=== PATIENT | female | born 1965 | race Caucasian/White ===

== ENCOUNTER 2017-12-30 05:50 | Day surgery (SDC) | payer OTHER, SELFPAY ==
--- NOTE | 2017-12-30 | EGD_PTH ---
PATIENT: KENNETH PIERRE LOC: EN U#:[id number] AGE/SX: 52/F ROOM: RE12/30/[address]: Dr. Panchito Peralta MD : 1965 BED: DIS: 12/30/2017 SPEC #: [id number] RECD: 12/30/17 13:17 STATUS: SIDBinta RANDAL #: [id number] DEANNA: 12/30/17 00:[address]: Panchito Peralta DEPT: SURGICAL PATHOLOGY RECD BY: Luis Manuel Bee ENTERED: 12/30/17 13:18 SP TYPE: EGD BIOPSY ROLANDA DR: Cat Alanis PA-C Tissues: A - Duodenum, NOS B - Gastric mucous membrane C - Esophageal mucous membrane D - Esophageal mucous membrane Procedures: Surgery Specimen Level IV HEADER OPERATION: EGD PRE-OP DIAGNOSIS: GERD TISSUE SUBMITTED: A. Duodenal biopsy, B. Antral biopsy, C. Distal esophagus biopsy, D. Mid esophagus biopsy MICROSCOPIC DIAGNOSIS A. Duodenal biopsy: Fragment of duodenal mucosa with Kiah gland hyperplasia. B. Antral biopsy: Mild gastritis. C. Distal esophagus, biopsy: Fragments of gastroesophageal mucosa with mild chronic inflammation. Intestinal metaplasia (goblet cell metaplasia), not identified. See comment. D. Mid esophagus, biopsy: Fragments of squamous epithelium, no pathologic diagnosis. SJ:mo 01/02/18 COMMENT B. The results of immunohistochemistry for Helicobacter pylori will be reported separately. C. Alcian blue/PAS stain with matched control is used in the evaluation of the specimen. MICROSCOPIC DESCRIPTION Slides are reviewed. B. The specimen shows fragments of gastric mucosa with chronic inflammatory cell infiltrates in the lamina propria consisting of lymphocytes and plasma cells, consistent with mild chronic gastritis. GROSS DESCRIPTION A. Received is one container labeled with the patient name and designated duodenal biopsy. The specimen consists of one irregular fragment of light borjsa soft tissue that measures 0.3 x 0.2 x 0.1 cm. The specimen is totally submitted in one cassette. B. Received is one container labeled with the patient name and designated antral biopsy. The specimen consists of one irregular fragment of light borjas soft tissue that measures 0.5 x 0.2 x 0.1 cm. The specimen is totally submitted in one cassette. C. Received in fixative is one container labeled with the patient's name and designated distal esophagus. The specimen consists of multiple irregular fragments of light borjas soft tissue that in aggregate measure 1.5 x 0.3 x 0.1 cm. The specimen is totally submitted in one cassette. D. Received is one container labeled with the patient name and designated mid esophagus biopsy. The specimen consists of two irregular fragments of light borjas soft tissue that in aggregate measure 0.7 x 0.2 x 0.1 cm. The specimen is totally submitted in one cassette. SJ:mo 12/30/17 TC:3 CPT: 98904 x4
--- NOTE | 2017-12-30 | IMM_PTH ---
PATIENT: KENNETH PIERRE LOC: EN U#:[id number] AGE/SX: 52/F ROOM: RE12/30/[address]: Dr. Panchito Peralta MD : 1965 BED: DIS: 12/30/2017 SPEC #: [id number] RECD: 01/02/18 10:42 STATUS: ELIJAH RANDAL #: [id number] DEANNA: 12/30/17 00:[address]: Panchito Peralta DEPT: IMMUNOHISTOCHEMISTRY RECD BY: Masha Mena ENTERED: 01/02/18 10:42 SP TYPE: IMMUNO OTHR DR: Cat Alanis PA-C Tissues: Gastric mucous membrane Procedures: H Pylori (initial) PHYSICIAN & INSTITUTION [place] [address] SPECIMEN INFORMATION: Tissue Source: B. Antral biopsy Clinical Info: GERD Specimen Number: [id number] CPT code: 32657 METHODOLOGY: Deparaffinized sections of prefer/formalin-fixed tissue or PAP/DQ stained slides are incubated with monoclonal/polyclonal antibodies/oligonucleotide probes. Localization is made via biotin free immunoperoxidase method. Appropriate controls are performed and reacted as expected. Results on target cell population are indicated in the following table: RESULTS: ANTIBODY / CLONE RESULT H Pylori (polyclonal) negative These tests were developed and their performance characteristics determined by [facility]. They may not have been cleared or approved by the [place]. Food and Drug Administration. The FDA has determined that such clearance or approval is not necessary. INTERPRETATION: B. Antral biopsy: Negative for Helicobacter pylori organisms. SJ:morenita 01/03/18
[2017-12-30 06:05] VITALS: BP 118/80; PULSE 93; RESP 18; TEMP 36.5; O2SAT 97; BMI 31.7
--- NOTE | 2017-12-30 07:22 | PCM.OPRPT ---
Problem List (1) Family history of colon cancer in mother Status: Acute (2) Choking sensation Status: Acute Report of Operation Date of Procedure: 12/30/17 Pre-Operative Diagnosis: Choking sensation. Family history of colon cancer in her mother Post-Operative Diagnosis: Hiatal hernia, suspected mild gastroesophageal reflux disease, chronic gastritis. Sigmoid diverticulosis Surgery/Procedure Performed:: Esophagogastroduodenoscopy with duodenal and antral and distal and mid esophageal biopsies. Colonoscopy Description of Surgical Findings:: Timeout and informed consent was obtained. The patient was taken to the endoscopy suite. Her oropharynx was anesthetized with Topex. She was placed in left lateral decubitus position. She underwent monitored anesthesia care. Flexible gastroscope was inserted into the esophageal inlet and advanced without difficulty. The proximal mid distal esophagus not remarkable other than the EG junction was at 36 cm and there was a moderate sized 5 cm hiatal hernia. Scope was advanced in the stomach and diffuse mild erythema of the antrum was noted with flattening of the mucosa. The scope was advanced through the pylorus. The first and second portion of the duodenum were not remarkable. The duodenal bulb biopsy was obtained. The scope was withdrawn back into the stomach and an antral biopsy was obtained. These were done with cold forceps. The scope was retroflexed in the EG junction and cardia inspected. Hiatal hernia noted. The cardia was otherwise unremarkable. The greater and lesser curvatures were carefully inspected were not remarkable. Excess fluid and air was aspirated free. The hiatal hernia noted. At the EG junction the distal esophagus cold forcep biopsies were obtained. The scope was then further withdrawn in the mid esophagus biopsies were obtained. Excess fluid and air was aspirated free procedure was completed with the patient tolerating it well. The patient was kept in the left lateral decubitus position. Digital rectal exam performed. Slightly lax anal tone. Mild hemorrhoidal changes. Flexible colonoscope inserted in the rectum advanced through a tortuous sigmoid colon. The scope was readily advanced through the transverse colon with some minimal transabdominal pressure is advanced to the cecum. The cecum and ileocecal valve area was nicely achieved bowel prep was excellent. The scope was carefully withdrawn from the cecum and ascending colon transverse colon descending colon and sigmoid colon. Diverticulosis noted in the sigmoid. No evidence of acute inflammation. The scope was retroflexed within the rectum hemorrhoidal changes noted. No active bleeding. Excess fluid and air was aspirated free the procedure was completed with the patient tolerating it well. Impression Findings are consistent with a moderate hiatal hernia. There is a suggestion of some very mild reflux esophagitis at the distal esophagus with pathology pending. Mild chronic antral gastritis. Sigmoid diverticulosis Findings would suggest that her globus choking sensation would be consistent with gastroesophageal reflux disease. Will recommend omeprazole 40 mg daily as she is taking while we are awaiting biopsy results. Patient's previous colonoscopy was 5 years prior. Next colonoscopy recommended in 5 years. Upper endoscopy was started 0701. It was completed at 0706. The colonoscopy was started 0709. The cecum was reached at 0714. The procedure was completed at 0720. Panchito Peralta M.D., F.A.C.S. Type of Anesthesia:: MAC Anesthesiologist: Robbin Galarza
[2017-12-30 07:25] VITALS: BP 103/69; BP 118/80; PULSE 80; RESP 16; TEMP 36.2; O2SAT 98
[2017-12-30 07:30] VITALS: BP 109/73; BP 118/80; PULSE 77; RESP 16; O2SAT 98
[2017-12-30 07:35] VITALS: BP 118/80; BP 120/75; PULSE 70; RESP 16; O2SAT 98
[2017-12-30 07:40] VITALS: BP 110/64; BP 118/80; PULSE 72; RESP 16; TEMP 36.2; O2SAT 100
== END 2017-12-30 08:07 | disposition home or self-care (01) ==
LOC: EN 05:50 → AC 05:51
PROVIDERS: Family Provider Family Medicine; PCP Family Medicine; Visit Provider Surgery
PROC: 0DJD8ZZ Inspection of Lower Intestinal Tract, Via Natural or Artificial Opening Endoscopic (ICD-10-PCS; CPT 45378; principal; 2017-12-30 06:55)
DX: K29.50 Unspecified chronic gastritis without bleeding (principal); K44.9 Diaphragmatic hernia without obstruction or gangrene; K21.9 Gastro-esophageal reflux disease without esophagitis; K57.30 Diverticulosis of large intestine without perforation or abscess without bleeding; K64.9 Unspecified hemorrhoids; K62.89 Other specified diseases of anus and rectum; E06.9 Thyroiditis, unspecified; Z78.0 Asymptomatic menopausal state; Z80.0 Family history of malignant neoplasm of digestive organs; Z86.2 Personal history of diseases of the blood and blood-forming organs and certain disorders involving the immune mechanism; Z79.899 Other long term (current) drug therapy
CPT/HCPCS: 43239; 45378; 88305; 88342; J7120

== ENCOUNTER 2018-02-23 21:26 | Observation (INO) | payer OTHER, SELFPAY ==
[2018-02-23 21:27] VITALS: BP 165/81; PULSE 93; RESP 20; TEMP 36.2; O2SAT 100; BMI 33.3
[2018-02-23] MEDS: Aspirin 81 MG TAB.CHEW 324 MG PO (22:35)
[2018-02-23] MEDS: Ondansetron 4 MG/2 ML Vial IV (22:35)
[2018-02-23] MEDS: 0.9% Normal Saline 1,000 ML 150 ML IV (22:35)
[2018-02-23] MEDS: Morphine 4 MG/ML Syringe IV (22:35)
[2018-02-23 22:37] VITALS: BP 132/81; PULSE 79; RESP 18; O2SAT 98
[2018-02-23 22:46] LABS: Absolute Lymphocyte Count 3.75 X10^3/ul (0.83-4.51); Absolute Neutrophil Count 4.8 X10^3/uL (2.0-7.7); Basophil# 0.06 X10^3/uL; Basophil% 0.6 % (0-1); Eosinophil# 0.16 X10^3/uL; Eosinophils% 1.7 % (0-5); Hematocrit 44.3 % (37-47); Hemoglobin 14.7 g/dl (12.0-15.0); Lymphocyte # 3.75 X10^3/ul (4.0); Lymphocyte % 39.4 % (19-41); Mean Corp Hgb Conc 33.2 g/gl (32-36); Mean Corpuscular Hgb 29.6 pg (27.0-32.0); Mean Corpuscular Volume 89.1 fL (81-99); Mean Platelet Vol. 11.4 fl (6.2-12.0); Monocyte# 0.75 X10^3/uL; Monocyte% 7.9 % (0-10); Neutrophil # 4.78 X10^3/uL (2.7-7.7); Neutrophil % 50.3 % (47-70); POSITIVE COUNT NO; POSITIVE DIFFERENTIAL NO; POSITIVE MORPHOLOGY NO; Platelet Count 269 K/mm3 (150-450); RBC Distribution Width CV 12.7 % (11.6-14.6); RBC Distribution Width SD 40.7 fl (35.1-43.9); Red Blood Count 4.97 M/mm3 (4.2-5.4); White Blood Count 9.5 K/mm3 (4.4-11.0)
[2018-02-23 22:58] LABS: Anion Gap 9 (5-15); BUN 16 mg/dL (7-18); BUN/Creat Ratio 13.1 RATIO (10-20); Calcium,Total 9.3 mg/dL (8.5-10.1); Chloride 106 mmol/L (98-107); Creatinine, Serum 1.22 mg/dL (0.55-1.02); EST Glomerular Filtration Rate 49 mL/min (>60); Est Glom Filt Rate - Afr Amer 60 mL/min (>60); Estimated Creatinine Clearance 45.64 ml/min; Glucose 108 mg/dL (74-106); Potassium 3.8 mmol/L (3.5-5.1); Sodium Level 141 mmol/L (136-145)
--- NOTE | 2018-02-23 23:39 | ED.VISSUMM ---
- ER Visit Summary Date of Service: 02/23/18 Chief Complaint: Chest pain History of Present Illness: The patient is a [address] Alanis. She reports that she has chest pain that began yesterday. It was intermittent yesterday. However, she reports it is become constant approximately 3 hours ago. She describes it as a soreness in the substernal area with radiation to the right side of her jaw and down her right arm. It is 8 out of 10 at worst and 7 out of 10 currently. Is worsened by exertion. Son change with movement or breathing. She taken she is taken ibuprofen without relief. She does report that is making her nauseated and diaphoretic. Patient reports that her father had an SD at 50 and her sister had an SD at 51. Physical Examination: Vitals: Stable. Afebrile. General: Well-nourished and well-developed. Head: Normocephalic atraumatic. Neck: Supple, no lymphadenopathy. No JVD. Nontender. Cardiovascular: Regular rate and rhythm. No murmurs. Respiratory: No respiratory distress. Clear to auscultation bilaterally. Abdominal: Soft, nontender, nondistended, normal bowel sounds. No guarding, rebound, or peritoneal signs. Back: Nontender. Extremities: Nontender, no edema. Skin: Normal color, no rash. Neurologic: Alert and oriented ?3. Cranial nerves II through XII are intact. Normal strength and sensation. Psych: Normal affect. Test Results: EKG is sinus at [address] changes. Troponins negative. Chem-7 more for creatinine 1.22 and glucose 108. CBC is normal. Chest x-ray is normal. Emergency Department Course and Treatment: Patient was treated with aspirin, morphine, and Zofran. She is resting comfortably. Treatment Plan: Patient's history has multiple concerning factors. She was discussed with Dr. Bruno and will be admitted to the hospital for further relation and treatment. Disposition: Admitted in improved condition. Impression: 1. Chest pain. 2. OLIVER score of 0. This note was generated with [employer] dictation software. It may contain incorrect words, spelling, and punctuation that were not noted in review of the chart prior to signing ED Disposition - Plan for ED Patient: Chief Complaint: Chest Pain Referrals: Cat Alanis PA-C [Primary Care Provider] -
--- NOTE | 2018-02-23 23:49 | NURSING ---
Called [facility] charge nurses[facility] to send patient to the floor.
[2018-02-24] VITALS (8 sets, daily range): BP systolic 138–149; BP diastolic 80–90; PULSE 68–83; RESP 16–18; TEMP 36.4–36.9; O2SAT 97–99; BMI 33.7
--- NOTE | 2018-02-24 00:49 | PCM.HP.STD ---
Problem List (1) Atypical chest pain Status: Acute (2) Anxiety disorder Status: Chronic (3) Family history of colon cancer in mother Status: Acute (4) Choking sensation Status: Acute History of Present Illness Date of Admission: 02/24/18 Chief Complaint: Chest pain since yesterday. The patient is a 52 year old F came to ER with chest pain that started yesterday. She had a stressful day yesterday and had intermittent chest pain which felt like discomfort with radiation to the right side of arm. Chest pain got constant and persistent after 6 PM today. She does not have associated shortness of breath but was diaphoretic, nauseated and had palpitation. With regards to family history, patient's father had MD at age of 50 and her sister at the age of 51. She denies history of hypertension, dyslipidemia. In ED, EKG shows normal sinus rhythm with no signs of ischemia. Chest x-ray reported normal. [] Past Medical History Past Medical History (Chronic Problems): Chronic Problems Anxiety disorder (Chronic) Allergies amoxicillin [From Augmentin] Adverse Reaction (Verified 02/23/18 21:29) Nausea clavulanic acid [From Augmentin] Adverse Reaction (Verified 02/23/18 21:29) Nausea Home Medications: Ambulatory Orders Medication Instructions Recorded Levothyroxine Sodium [Synthroid] 50 mcg PO DAILY 12/21/17 Pantoprazole Sodium [Protonix] 40 mg PO DAILY 02/24/18 Smoking Status: Never smoker Tobacco Use: Non-smoker - *Family History Paternal History Items: Heart Disease Review of Systems Constitutional: Denies: Chills, Fever, Weight Change HEENT: Denies: Head Aches, Sinus Congestion, Sinus Drainage Cardiovascular: Reports: Chest Pressure, Palpitations. Denies: Chest Pain, Edema Respiratory: Denies: Cough, Shortness of breath at rest, Sputum production Gastrointestinal: Denies: Abdominal Pain, Nausea, Vomiting Genitourinary: Denies: Dysuria Musculoskeletal: Denies: Joint Pain, Joint Tenderness Skin: Denies: Rash, Wounds Neurological: Denies: Numbness, Tingling, Focal weakness Psychiatric: Denies: Anxiety, Depression, Homicidal Ideations, Suicidal Ideations Hematologic/ Lymphatic: Denies: Easy Bruising, Easy Bleeding VTE Information - Inpt Only VTE Present on Admission: No VTE Mechan Device Prophylaxis: None VTE Pharm Prophylaxis ordered?: Yes Patient Problems: Active and Suspected Problems Atypical chest pain (Acute) - Physical Exam General: Alert, Oriented x3, Cooperative HEENT: Atraumatic, PERRLA, EOMI, Normocephalic Neck: Supple, No JVD, Negative Carotid Bruits Lungs: Clear to auscultation, Normal air movement Cardiovascular: Regular rate, Normal S1, Normal S2, No murmurs Abdomen: Bowel Sounds Present, Soft, Non Tender Extremities: No edema, Capillary Refill Less than 3 Seconds Skin: No rashes, No breakdown Musculoskeletal: No Tenderness to Palpation of Joints or Extremities Neurological: Cranial nerves II-XII grossly intact Psych/Mental Status: Normal Affect, Appropriate Vital Signs Temp Pulse Resp BP Pulse Ox 97.9 F 78 18 143/90 H 98 02/24/18 00:15 02/24/18 00:15 02/24/18 00:15 02/24/18 00:15 02/24/18 00:15 Oxygen Delivery Method Room Air Weight: 190 lb 4.143 oz Body Mass Index (BMI) 33.7 Laboratory Tests Past 24 Hrs 02/24/18 00:27 Troponin I Pending Assessment/Plan All Active Problems Family history of colon cancer in mother (Acute) Choking sensation (Acute) Atypical chest pain (Acute) The patient is a 52 year old F came to ER with chest pain that started yesterday. She had a stressful day yesterday and had intermittent chest pain which felt like discomfort with radiation to the right side of arm. Chest pain got constant and persistent after 6 PM today. She does not have associated shortness of breath but was diaphoretic, nauseated and had palpitation. With regards to family history, patient's father had MD at age of 50 and her sister at the age of 51. She denies history of hypertension, dyslipidemia. In ED, EKG shows normal sinus rhythm with no signs of ischemia. Chest x-ray reported normal. 1. Atypical chest pain rule out acute coronary syndrome probably panic attack: Patient is being admitted in PCU with ACS protocol. Cycle cardiac enzymes and if negative, treadmill nuclear stress test today a.m. OLIVER score 1/7. Troponin is negative. 2. Hypothyroidism: Continue Synthroid. Fasting lipid profile and free T4 tomorrow a.m. 3. Other comorbidities include GERD: On Protonix 40 g daily. DVT prophylaxis: On Lovenox 40 mils subcu daily. Laboratory Results 02/23/18 21:45: WBC 9.5, RBC 4.97, Hgb 14.7, Hct 44.3, MCV 89.1, MCH 29.6, MCHC 33.2, RDW 12.7, RDW Differential 40.7, Plt Count 269, MPV 11.4, Immature Gran % (Auto) 0.100, Neut % (Auto) 50.3, Lymph % (Auto) 39.4, Sequoyah % (Auto) 7.9, Eos % (Auto) 1.7, Baso % (Auto) 0.6, Absolute Neuts (auto) 4.8, Absolute Lymphs (auto) 3.75, Total Counted Not Reportable 02/23/18 21:45: Sodium 141, Potassium 3.8, Chloride 106, Carbon Dioxide 26.0, Anion Gap 9, BUN 16, Creatinine 1.22 H, Estim Creat Clear Calc 45.64, Est GFR (MDRD) Af Amer 60, Est GFR (MDRD) Non-Af 49 L, BUN/Creatinine Ratio 13.1, Glucose 108 H, Calcium 9.3, Troponin I < 0.015 02/24/18 00:27: Troponin I < 0.015 Code Visit OBSV E&M: 01614 Initial observation care L3
[2018-02-24] MEDS: 0.9% Normal Saline 1,000 ML 150 ML IV (00:55)
[2018-02-24] MEDS: 0.9% NaCl Peripheral Flush Adult/Peds IV (00:55)
[2018-02-24 03:55] LABS: Absolute Lymphocyte Count 2.95 X10^3/ul (0.83-4.51); Absolute Neutrophil Count 3.3 X10^3/uL (2.0-7.7); Basophil# 0.07 X10^3/uL; Eosinophil# 0.11 X10^3/uL; Eosinophils% 1.6 % (0-5); Hemoglobin 12.7 g/dl (12.0-15.0); Lymphocyte # 2.95 X10^3/ul (4.0); Lymphocyte % 41.7 % (19-41); Mean Corp Hgb Conc 33.4 g/gl (32-36); Mean Corpuscular Hgb 29.7 pg (27.0-32.0); Mean Platelet Vol. 11.1 fl (6.2-12.0); Monocyte# 0.63 X10^3/uL; Monocyte% 8.9 % (0-10); Neutrophil % 46.7 % (47-70); Platelet Count 218 K/mm3 (150-450); RBC Distribution Width CV 12.5 % (11.6-14.6); RBC Distribution Width SD 39.8 fl (35.1-43.9); Red Blood Count 4.27 M/mm3 (4.2-5.4); White Blood Count 7.1 K/mm3 (4.4-11.0)
[2018-02-24 03:59] LABS: Prothrombin Time (Protime)PT. 12.7 SECONDS (11.7-14.9)
[2018-02-24 04:00] LABS: POSITIVE COUNT NO; POSITIVE DIFFERENTIAL NO; POSITIVE MORPHOLOGY NO; Partial Thromboplast Time 30.8 Seconds (24.1-36.2)
[2018-02-24 04:25] LABS: Anion Gap 9 (5-15); BUN 17 mg/dL (7-18); BUN/Creat Ratio 19.4 RATIO (10-20); Calcium,Total 8.2 mg/dL (8.5-10.1); Chloride 111 mmol/L (98-107); Cholesterol 185 mg/dL (200); Creatinine, Serum 0.88 mg/dL (0.55-1.02); EST Glomerular Filtration Rate 72 mL/min (>60); Est Glom Filt Rate - Afr Amer 88 mL/min (>60); Estimated Creatinine Clearance 63.27 ml/min; Glucose 98 mg/dL (74-106); High Density Lipoprotein 34 mg/dL; Sodium Level 145 mmol/L (136-145); T4 Free Direct 1.09 ng/dL (0.76-1.46); Thyroid Stim Hormone (TSH) 2.04 uIU/mL (0.358-3.74); Triglycerides 267 mg/dL; Very Low Density Lipoprotein 53 mg/dL (5-40)
[2018-02-24] MEDS: Acetaminophen 325 MG Tablet 650 MG PO ×2 (05:20→11:06)
[2018-02-24] MEDS: Aspirin E.C. 81 MG Tablet PO (05:22)
--- NOTE | 2018-02-24 08:35 | STRESSREP ---
Stress Test Report Exercise myocardial perfusion stress test. 52-year-old lady with a history of chest pain. Stress protocol: Resting EKG demonstrates normal sinus rhythm with a rate of 72 bpm normal intervals and noted resting blood pressure is 144/88 mmHg. The patient exercised according to regular Case protocol for total duration of 6 minutes and 33 seconds the maximum heart rate attained was 148 bpm which was 87% of maximum predicted heart rate the maximum workload attained was 7.8 metabolic equivalents. At rest there were no ST or T-wave changes noted suggest ischemia at peak exercise upsloping ST changes were noted we did not meet the criteria for ischemia. No clinical angina was noted the test was terminated due to leg fatigue. The resting blood pressure is 144/88 with a peak blood pressure 182/70 mmHg pressure product was 26,900. Myocardial perfusion protocol. 11.9 mCi of technetium 99m sestamibi was injected at rest. The patient exercised according to regular Case protocol for total duration of 6 minutes and 33 seconds attaining a workload of 7.8 metabolic equivalents. At peak exercise 33.7 mCi of technetium 99m sestamibi was injected stress images were obtained stress and rest images were reconstructed and compared in the short axis vertical long and horizontal long axis. Gated images were also obtained pre- Perfusion SPECT analysis: Review of the stress images demonstrate normal uptake of tracer noted in all areas of the myocardium. The resting images similarly demonstrate normal uptake of tracer noted in all areas of myocardium. No areas of reversibility are noted suggest ischemia. Gated SPECT analysis: The gated ejection fraction is 81%. Conclusion: Normal exercise myocardial perfusion stress test at a moderate workload. Preserved ejection fraction. No clinical angina.
[2018-02-24] MEDS: Levothyroxine 50 MCG Tablet PO (10:57)
[2018-02-24] MEDS: Pantoprazole Sodium 40 MG Tablet PO (10:57)
--- NOTE | 2018-02-24 11:36 | PCM.DC ---
- Discharge Diagnoses Current Active Problems: Current Active and Chronic Problems Atypical chest pain (Acute) Anxiety disorder (Chronic) You will use the following diet at home:: Cardiac Your food should be the consistency of: Regular Your liquids should be the consistency of: Regular/Thin Discharge Activity: Return to Normal Activity Allergies/Adverse Reactions: Allergies amoxicillin [From Augmentin] Adverse Reaction (Verified 02/23/18 21:29) Nausea clavulanic acid [From Augmentin] Adverse Reaction (Verified 02/23/18 21:29) Nausea Medications to take at Discharge Levothyroxine Sodium [Synthroid] 50 mcg PO DAILY 12/21/17 Atorvastatin Calcium [Lipitor] 20 mg PO QHS #30 tab 02/24/18 Pantoprazole Sodium [Protonix] 40 mg PO DAILY 02/24/18 The following prescriptions were given: Atorvastatin Calcium [Lipitor] 20 mg PO QHS #30 tab Primary Care Physician: Cat Alanis PA-C [Primary Care Provider] - Please follow up with your Primary Care Physician in: 1-2 weeks Test Results: Test results from this visit will be discussed in further detail at your follow-up appointment, if applicable. Proposed Discharge Date: 02/24/18
--- NOTE | 2018-02-24 13:54 | PCM.DC.SUM ---
<Anirudh Cárdenas - Last Filed: 02/24/18 13:54> Discharge Date and Diagnosis Date of Admission: 02/24/18 Date of Discharge: 02/24/18 - Primary Discharge Diagnosis Chest pain-musculoskeletal Hypertension Hyperlipidemia Hypothyroidism Obesity - Secondary Discharge Diagnosis Chronic Problems Anxiety disorder (Chronic) Hospital Course and Treatment Imaging Results: 02/24/18 05:55 Nuclear Stress Test - Treadmil [NM] AM (NON MEDS) Conclusion: Normal exercise myocardial perfusion stress test at a moderate workload. Preserved ejection fraction. No clinical angina. Operations: None Procedures: Stress test Summary of Care Provided: Physical exam on day of discharge: General: Resting comfortably NAD Psych: A/Ox3 normal affect HEENT: PEARRLA AT NC Neck: Supple NT CV: RRR no m/t/r/g/h Resp: CTA Abd: [id number] Soft NT no guarding or rigidity Ext: DP2+= no edema Skin: W/D normal turgor Lymph/Heme: No active bleeding or adenopathy Neuro: CN2-12 intact Musculoskeletal: Tenderness to palpation over the right third and fourth ribs anteriorly. Hospital course: The patient is a 52 year old F with a past medical history of hypertension recently diagnosed and started on losartan as an outpatient, hypothyroidism, acid reflux, who presented to the emergency room with a chief complaint of chest pain described as midsternal, intermittent progressing to constant with radiation to the right arm and into the right scapular area that began the per day prior to admission. Began while she was sitting in a chair. Patient was brought to the ER had a negative chest x-ray, negative troponin, negative EKG. the patient was admitted for chest pain workup. She was admitted with telemetry in the PCU with repeat troponins, and underwent a stress test the following morning. Troponins were negative, no events on telemetry, stress test negative. On further exam the patient's chest pain was reproducible with palpation over the right sternum at the third and fourth ribs. It is felt that her chest pain was musculoskeletal in origin. Her blood pressure was somewhat elevated while here and we recommended that she continue the losartan that she was recently prescribed, and she admitted that she had not picked up from the pharmacy yet. Her trigs were elevated at 267, LDL 98, HDL 34 and she was started on a statin. TSH /T4 normal. She was discharged home in stable condition advised to follow-up with her PCP in 1-2 weeks. This patient was seen by Anirudh Cárdenas PA-C under the supervision of Doctor Carloz. [] Discharge Diet: Low fat/ Low Cholesterol, 2000 mg Sodium Diet Discharge Activity: Return to Normal Activity Home Medications: Medications to take at Discharge Levothyroxine Sodium [Synthroid] 50 mcg PO DAILY 12/21/17 Atorvastatin Calcium [Lipitor] 20 mg PO QHS #30 tab 02/24/18 Pantoprazole Sodium [Protonix] 40 mg PO DAILY 02/24/18 Following Prescrptions Were Given to Patient: Atorvastatin Calcium [Lipitor] 20 mg PO QHS #30 tab Primary Care Physician: Cat Alanis PA-C [Primary Care Provider] - Please follow up with your Primary Care Physician in: 1-2 weeks Disposition: Home Minutes spent on discharge:: 35 Patient Condition:: Stable Medical Necessity - Tobacco Use Smoking Status: Never smoker Tobacco Use: Non-smoker Meaningful Use Info Meaningful Use Diagnoses (Choose all that apply): None applicable <Zulema Carty - Last Filed: 02/24/18 14:55> Discharge Date and Diagnosis - Secondary Discharge Diagnosis Chronic Problems Anxiety disorder (Chronic) Hospital Course and Treatment Imaging Results: 02/24/18 05:55 Nuclear Stress Test - Treadmil [NM] AM (NON MEDS) Summary of Care Provided: The patient is a 52 year old F [] Meaningful Use Info Meaningful Use Diagnoses (Choose all that apply): None applicable Code Visit Inpatient E&M: 41914 Subs Hosp L2
== END 2018-02-24 11:37 | disposition home or self-care (01) ==
LOC: ED 21:50 → PCU 23:53
PROVIDERS: Admitting Provider Internal Medicine; Emergency Provider Emergency Medicine; Family Provider Family Medicine; PCP Family Medicine; Visit Provider Internal Medicine
DX: R07.89 Other chest pain (principal); I10 Essential (primary) hypertension; E78.5 Hyperlipidemia, unspecified; E03.9 Hypothyroidism, unspecified; E66.9 Obesity, unspecified; Z68.33 Body mass index [BMI] 33.0-33.9, adult; Z71.3 Dietary counseling and surveillance; Z79.899 Other long term (current) drug therapy; K21.9 Gastro-esophageal reflux disease without esophagitis; Z82.49 Family history of ischemic heart disease and other diseases of the circulatory system; F41.9 Anxiety disorder, unspecified
CPT/HCPCS: 36415; 71045; 78452; 80048; 80061; 84439; 84443; 84484; 85025; 85610; 85730; 93005; 93017; 96361; 96374; 96375; 99218; 99284; A9500; J7030; A4216; G0378; J2405

== ENCOUNTER → 2018-08-18 10:53 | Outpatient (CLI) | payer OTHER, SELFPAY ==
[2018-08-18 09:52] LABS: Thyroid Stim Hormone (TSH) 1.88 uIU/mL (0.358-3.74)
== END ==
PROVIDERS: Anesthesiology; Family Provider Family Medicine; PCP Family Medicine; Referring Provider Surgery; Visit Provider Surgery
DX: C50.919 Malignant neoplasm of unspecified site of unspecified female breast (principal)
CPT/HCPCS: 36415; 84443; 93005

== ENCOUNTER 2018-08-28 13:24 | Observation (INO) | payer OTHER, SELFPAY ==
[2018-08-28] VITALS (11 sets, daily range): BP systolic 89–137; BP diastolic 57–85; PULSE 53–87; RESP 16–18; TEMP 36.3–36.6; O2SAT 92–98; BMI 35.1
--- NOTE | 2018-08-28 | AXNB_PTH ---
PATIENT: KENNETH PIERRE LOC: MS3 U#:[id number] AGE/SX: 53/F ROOM: MS314 RE08/28/[address]: Dr. Kate Mcelroy MD : 1965 BED: 1 DIS: 08/30/2018 SPEC #: [id number] RECD: 08/28/18 12:37 STATUS: ELIJAH REQ #: [id number] DEANNA: 08/28/18 00:[address]: Kate Mcelroy DEPT: SURGICAL PATHOLOGY RECD BY: Vy Bautista ENTERED: 08/28/18 13:09 SP TYPE: AX NODE BX OTHR DR: Cat Alanis PA-C Tissues: A - Axillary lymph node, NOS B - Left breast, NOS C - Right breast, NOS Procedures: Frozen Section (charge) Frozen Section [facility] [place] Surgery Specimen Level V HEADER OPERATION: Right breast mastectomy with sentinel lymph node biopsy PRE-OP DIAGNOSIS: Right breast cancer TISSUE SUBMITTED: A - Right axillary sentinel lymph node tissue for FS at 1232, B - Left breast mastectomy tissue, C - Right breast mastectomy tissue, stitch on tail of Boogie FROZEN SECTION DIAGNOSIS A. Right axillary sentinel lymph node tissue, biopsy: One lymph node, negative for metastatic carcinoma. SJ: 08/28/18 MICROSCOPIC DIAGNOSIS A. Right axillary sentinel lymph node tissue, biopsy: One lymph node, negative for metastatic carcinoma. See comment. B. Left breast tissue, mastectomy: Focal fibrocystic changes and intraductal hyperplasia without atypia. C. Right breast, mastectomy: Invasive ductal carcinoma. See cancer summary below. SJ: 08/31/18 INVASIVE BREAST CANCER SUMMARY: (Including specimen A & C) Specimen - total breast (including nipple and skin). Procedure - total mastectomy (including nipple and skin). Lymph node sampling - sentinel lymph node Specimen integrity - single intact specimen Specimen laterality - right Tumor site - lower outer quadrant Tumor size - 2 x 1.5 x 1.5 cm Tumor focality - single focus of invasive carcinoma Macroscopic and Microscopic extent of tumor: Skin - invasive carcinoma does not invade into the dermis or epidermis. Nipple - ductal carcinoma in situ does not involve the nipple epidermis. Skeletal muscle - skeletal muscle is present and is free of carcinoma. Ductal carcinoma in situ (DCIS) - no ductal carcinoma in situ is present Lobular carcinoma in situ (LCIS) - not identified Histologic type of invasive carcinoma - invasive ductal carcinoma with focal area of micropapillary feature. Histologic Grade (Hao grade): Glandular/tubular differentiation - score 3 Nuclear pleomorphism - score 3 Mitotic count - score 2 Overall grade - 3 (score of 8) Margins - Margins uninvolved by invasive carcinoma. The invasive carcinoma is 1 cm away from the closest inferior margin. Treatment effect: Response to presurgical (neoadjuvant) therapy - no known presurgical therapy. Lymph-Vascular invasion - suspicious for lymph-vascular invasion. See comment. Dermal lymph-vascular invasion - not identified Lymph nodes: Number of sentinel lymph nodes examined - 1 Total number of lymph nodes examined (sentinel and nonsentinel) - 1 Number of lymph nodes with macrometastases, micrometastases and isolated tumor cells - 0 Method of evaluation of sentinel lymph nodes - H & E, multiple levels and IHC. Distant metastasis - not applicable Additional pathologic findings - fibrocystic changes and intraductal hyperplasia without atypia. Ancillary studies - previously performed at [facility] ([id number]) ER - positive (95%, strong) CT - positive (80%, strong) Her2 ildefonso - 0 Microcalcifications - not identified Clinical history - Please make reference to previous specimen from [facility] dated 08/03/18 ([id number]), right breast, abnormal mammogram, ultrasound-guided needle core biopsy with diagnosis of invasive ductal carcinoma. PATHOLOGIC STAGE: pT1c pN0(sn) Mx The above summary is in compliance with [employer] [place] [employer] (CAP) Cancer Protocols Checklist and [place] Joint Committee on Cancer (AJCC), Staging Manual, 8th Ed. COMMENT A. The lymph node is negative for metastatic carcinoma on multiple H & E levels and immunohisto-chemical stains for cytokeratins ([id number]). B. Immunohistochemistry ([id number]) supports the above diagnosis. This case has been in consultation with Dr. Wright who concurs with the above diagnosis. MICROSCOPIC DESCRIPTION Slides are reviewed. GROSS DESCRIPTION A - Received fresh for frozen section diagnosis labeled with the patient's name is a specimen designated right axillary sentinel lymph node tissue. The specimen consists of a piece of yellow adipose tissue containing a nodule consistent with lymph node measuring 4.5 x 3 x 1 cm. The lymph node measures 4 cm in greatest dimension. The entire specimen is submitted as follows: 1 & 2 - frozen section, one lymph node, 3 - rest of the specimen. / SJ:austyn 08/28/18 B - Received in fixative is one container labeled with the patient's name and designated left mastectomy breast tissue. The specimen consists of a mastectomy specimen consisting of breast tissue with overlying skin ellipse. The breast tissue measures 21 x 21 x 6 cm and the overlying skin ellipse measures 17 x 8 cm and nipple measures 0.8 cm in greatest dimension. A separate piece of fibroadipose tissue is also noted in the specimen measuring 12 x 7 x 4 cm. The specimen is inked as follows: superior margin - blue, inferior margin - green, medial - red, posterior - black and lateral - orange. No skin lesion is identified. Sections do not reveal any mass lesion and reveal yellow adipose cut surfaces mixed with borjas-white fibrous areas. Sections will be submitted after fixation. / SJ: 08/28/18 C - Received in fixative is one container labeled with the patient's name and designated right mastectomy breast tissue, stitch on tail of Keagan. The specimen consists of mastectomy specimen consisting of breast tissue with overlying skin ellipse. The breast tissue measures 21 x 21 x 6 cm and the overlying skin ellipse measures 15 x 7 cm. The nipple measures 0.9 cm in greatest dimension. The posterior surface does not show any well-defined skeletal muscle tissue. More dictation will follow after overnight fixation. / SJ: 08/28/18 Sections reveal a borjas, indurated mass measuring 2 x 1.5 x 1.5 cm. This mass is present in the lower outer quadrant of the specimen. The central portion of the mass also shows hemorrhagic cavity. This mass is 1 cm away from the closest inferior margin. No additional mass lesion is identified. Sections of the rest of the specimen reveal borjas-yellow adipose cut surfaces mixed with scant borjas-white fibrous areas. Wire Winder sections are submitted in 12 cassettes as follows: 1 - nipple, entirely submitted, 2 - perpendicular superior, inferior margin and skin, 3 - perpendicular medial, lateral margin and posterior margin, 4-7 - entire tumor, 8 - compliance representative section adjacent to the tumor, 9-12 - compliance representative section away from the tumor. Sections will be submitted after additional fixation. / SJ:rg 08/29/18 TC:0 CPT: 50788 x3, 87039, 79855 ADDENDUM ADDENDUM ADDENDUM ADDENDUM ADDENDUM ADDENDUM ADDENDUM ADDENDUM 09/27/2018 12:17 ADDENDUM 09/27/2018 12:17 ADDENDUM 09/27/2018 12:17 ADDENDUM 09/27/2018 12:17 ADDENDUM 09/27/2018 12:17 An order for Oncotype testing was received from Dr. Goldbreg. This necessitated case review, block and slide selection by pathologist at [facility]. Breast Cancer Recurrence Score = 16 Results of the complete Oncotype testing (Quixby report) are viewable in EMR under: Reports - Pathology - Lab Pathology Report, Scanned.
--- NOTE | 2018-08-28 | IMM_PTH ---
PATIENT: KENNETH PIERRE LOC: MS3 U#:[id number] AGE/SX: 53/F ROOM: MS314 RE08/28/[address]: Dr. Kate Mcelroy MD : 1965 BED: 1 DIS: 08/30/2018 SPEC #: [id number] RECD: 08/31/18 13:46 STATUS: ELIJAH REQ #: [id number] DEANNA: 08/28/18 00:[address]: Kate Mcelroy DEPT: IMMUNOHISTOCHEMISTRY RECD BY: Vy Bautista ENTERED: 08/31/18 13:48 SP TYPE: IMMUNO OTHR DR: Cat Alanis PA-C Tissues: A - Axillary lymph node, NOS C - Right breast, NOS Procedures: CD31 (initial) CK7 (add) FACTOR VIII (add) Pankeratin (initial) Pankeratin (add) PHYSICIAN & INSTITUTION [place] [id number] SPECIMEN INFORMATION: Tissue Source: A - Right axillary sentinel lymph node tissue, C - Right breast tissue, mastectomy Clinical Info: Right breast cancer Specimen Number: [id number] A1, A2, C7 CPT code: 40144 x2, 57378 x4 METHODOLOGY: Deparaffinized sections of prefer/formalin-fixed tissue or PAP/DQ stained slides are incubated with monoclonal/polyclonal antibodies/oligonucleotide probes. Localization is made via biotin free immunoperoxidase method. Appropriate controls are performed and reacted as expected. Results on target cell population are indicated in the following table: RESULTS: ANTIBODY / CLONE RESULT Block A1 AE1-3 (AE1/AE3/PCK26) negative CK7 (OV-TL12/30) negative Block A2 AE1-3 (AE1/AE3/PCK26) negative CK7 (OV-TL12/30) negative Block C7 CD31 (RAMAKRISHNA/70A) Equivocal Factor VIII (R Ag) positive These tests were developed and their performance characteristics determined by [facility]. They may not have been cleared or approved by the U.S. Food and Drug Administration. The FDA has determined that such clearance or approval is not necessary. INTERPRETATION: A. Right axillary sentinel lymph node tissue, biopsy: One lymph node, negative for metastatic carcinoma. C. Right breast tissue, mastectomy: Suspicious for angiolymphatic invasion. SJ:austyn 09/01/18
--- NOTE | 2018-08-28 08:12 | NM_ITS ---
PROCEDURE: NUCLEAR MEDICINE Injection [place] Node - RIGHT breast(s). REASON FOR EXAM: Female, 53 years old. Right breast cancer. TECHNIQUE: [place] node localization using radionuclide methods of the RIGHT breast(s) was performed following subcutaneous administration of 1.1 mCi of of sulfur colloid Tc-99m. FINDINGS: 1.1 mCi of technetium labeled sulfur colloid was injected subcutaneously in 4 equal aliquots in the periareolar region. NM/Lymph Node Injection Only IMPRESSION: Subcutaneous injection of 1.1 mCi of technetium labeled sulfur colloid in the periareolar region. Electronically Signed: Kd Spence MD at 9:16 EST , Service support ,
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
[2018-08-28] MEDS: Methylene Blue 1% 100 MG/10 ML VIAL (11:23)
--- NOTE | 2018-08-28 13:24 | OP.PCM_ITS ---
Report of Operation Date of Procedure: 08/28/18 Pre-Operative Diagnosis: right breast cancer Post-Operative Diagnosis: same Surgery/Procedure Performed:: right breast mastectomy, right axillary sentinel lymph node biopsy Description of Surgical Findings:: one lymph node identified by blue and radioactive dye - negative for metastatic disease simultaneous left prophylactic mastectomy done by Dr. Lund process development associate: Mariely Dee Type of Anesthesia:: General Anesthesiologist: Juve Juarez Specimen's removed: right breast, right axillary lymph node tissue Drains: 2 DEEDEE drains on right, 1 DEEDEE drain on left Estimated Blood Loss (mL): 40 total Fluids Replaced: 1200 ml RL Description of Procedure: After informed consent was given the patient was brought to the OR. Appropriate time out protocol was followed. She was then placed in the supine position on the operating room table. She was then placed under general anesthesia. 2 cc of methylene blue dye diluted 50:50 was then injected into the periareolar area and around the biopsy cavity with a 25 g needle. Gentle massage was then done for a few minutes. The patient's upper chest and neck area was then prepped with a sterile surgical skin preparation and appropriate sterile surgical drapes were placed. Dr. Lund did a prophylactic left mastectomy simultaneously and this will be dictated in a separate operative report. A skin incision was made to include the periareolar tissues as well as to encompass the original biopsy incision. This was done in an elliptical fashion. The skin incision was made with a 10 blade scalpel and carried through to the subcutaneous tissues using electrocautery. Any hemorrhage was controlled with electrocautery. The medial and superior skin flap was created by the subcutaneous fat from the breast tissue using electrocautery. Any bleeding vessels were controlled with electrocautery. Larger vessels were ligated with vicryl suture. Dissection then continued to the level of the right lateral sternal border. The superior level of dissection was carried down to the clavipectoral fascia. The inferior skin flap was developed in the same fashion and the breast tissue was to its inferior border from the subcutaneous fat. The entire breast tissue and the pectoralis fascia were then from the pectoralis muscles starting medially and continuing laterally. The dissection included the interpectoral hanna tissue. Once dissection was achieved to the lateral aspect of the breast, then the inferior portion of the lateral tissue was transected leaving the breast tissue connected only by the superior lateral tissue (tail of Boogie) of the breast. The Neoprobe was brought into the surgical field. 10 second count over the tumor site was 562. 10 second count in the axilla was 8. Blunt dissection was then conducted into the axillary fossa to palpate out any axillary lymph nodes. Blue lymphatic channels were also followed to its lymphatic drainage area. Lymph hanna tissue that was blue in color was identified, also lymph nodes were palpated. They were dissected from the surrounding tissues and the vascular pedicles were ligated with ligaclips and vicryl suture. The 10 second Neoprobe count of this lymph hanna tissue was 460. The lymph hanna tissue was then forwarded to pathology and one lymph node was found to be negative for metastatic disease. 10 second Neoprobe count in the axilla was 10. Hemostasis of the area of dissection was then achieved with electrocoagulation. The mastectomy bed was vigorously irrigated with sterile water and all irrigation solution was removed. Maryuri was applied to the axillary cavity and also the maxillary bed. A 10 Fr drain was placed in the axilla and another was placed along the mastectomy bed and these drains were brought out through separate skin incisions and sutured to the skin using nylon suture. The superior and inferior skin flaps were then approximated together using interrupted 2-0 vicryl suture along the dermis of the skin edges. The skin incision was then reapproximated with 4-0 monocryl in a running subcuticular fashion. Cavilon and steristrips were then placed to reinforce the skin closure and proper sterile dressings were applied. Compression wrappings were placed. Patient was extubated and brought to the Recovery Room in stable condition. - Complications none noted - Admit VTE Documentation VTE Present on Admission: Yes VTE Mechan Device Prophylaxis: SCD's
[2018-08-28] MEDS: Bupivacaine Mpf 0.5% 30 ML VIAL (13:40)
[2018-08-28] MEDS: Lactated Ringers 1,000 ML 75 ML IV (16:23)
[2018-08-28] MEDS: Morphine 4 MG/ML Syringe IV ×2 (17:48→22:15)
[2018-08-28] MEDS: 0.9% NaCl Peripheral Flush Adult/Peds IV (17:49)
[2018-08-28] MEDS: Ondansetron 4 MG/2 ML Vial IV (17:49)
--- NOTE | 2018-08-28 17:55 | PCM.OPRPT ---
Report of Operation Date of Procedure: 08/28/18 Pre-Operative Diagnosis: right breast cancer - desires bilateral mastectomy Post-Operative Diagnosis: right breast cancer - desires bilateral mastectomy Surgery/Procedure Performed:: left simple mastectomy fabrication lead: Mariely Dee Type of Anesthesia:: General Anesthesiologist: Vivek Irving Specimen's removed: left simple mastectomy Estimated Blood Loss (mL): 60 Fluids Replaced: see other op note Description of Procedure: The patient?s surgical site was marked in the holding area and the patient concurred that this was the planned operative site. this surgical procedure was done in conjunction with Dr. Mcelroy's right modified radical mastectomy The patient was then brought to the operative suite. Sign was performed verifying patient, site, position, SCIP antibiotic prophylaxis-2 g of Ancef and DVT prophylaxis with SCDs. Following an LMA, the patient?s left breast, axilla and neck were then prepped and draped in the usual fashion. Timeout was performed verifying patient, site, position. The planned margin of excision for the mastectomy flaps were marked on the skin and incisions were made. Superior and inferior flaps were completed and raised. The breast tissue was taken down to the pectoralis fascia. The inferior portion of breast was then removed from the intercostal musculature and dissection carried superior laterally dividing the superficial tissues leading up to the axillary dissection . The specimen was sent whole. 1 John-Holt drains were placed in the medial along the skin flap and secured with 3-0 nylon suture. Skin flaps were approximated interrupted 3-0 Vicryls. Skin was closed with a 4-0 biosyn running subcuticular closure Drain dressings and incisional dressings were placed. All sponge and instrument counts were correct. The patient was extubated and brought to recovery room in stable condition.
[2018-08-28] MEDS: HYDROcodone Bitartrate/Apap 5/325 Tablet PO (19:54)
[2018-08-29] MEDS: HYDROcodone Bitartrate/Apap 5/325 Tablet PO ×4 (00:04→16:55)
[2018-08-29 02:00] VITALS: BP 106/57; PULSE 77; RESP 18; TEMP 37.2; O2SAT 95
[2018-08-29] MEDS: Morphine 4 MG/ML Syringe IV (02:13)
[2018-08-29 02:15] VITALS: PULSE 77
[2018-08-29] MEDS: Lactated Ringers 1,000 ML 75 ML IV ×2 (05:37→21:26)
--- NOTE | 2018-08-29 06:58 | PCM.PN.SRG ---
Subjective: Patient feels well, has had decreased UO, bladder scan reveals no retained urine - Physical Exam General: Alert, Oriented x3 Oral: Moist Mucosa Neck: Supple Lungs: Normal air movement Psych/Mental Status: Normal Affect Comment: dressing intact, DEEDEE drainage is serosanguinous, minimal output overnight Vital Signs Temp Pulse Resp BP Pulse Ox 98.9 F 77 18 106/57 L 95 08/29/18 02:00 08/29/18 02:15 08/29/18 02:00 08/29/18 02:00 08/29/18 02:00 Oxygen Flow Rate (L/min) 2 Oxygen Delivery Method Room Air Weight: 90 kg Body Mass Index (BMI) 35.1 Intake and Output for Last 24 Hours 08/27/18 08/28/18 08/29/18 23:59 23:59 23:59 Intake Total 2069 / 2069 1576 / 1576 Output Total 44 / 44 354 / 354 Balance 2025 / 2025 1222 / 1222 Medical Necessity - Tobacco Use Smoking Status: Never smoker Assessment/Plan All Active Problems Family history of colon cancer in mother (Acute) Choking sensation (Acute) Atypical chest pain (Acute) Impression: POD#1 s/p bilateral mastectomies Plan: Had planned discharge to home today, but patient felt uncomfortable going home - states that she feels dizzy and will be home alone and is concerned encouraged ambulation and incentive spirometry
[2018-08-29] MEDS: Lactated Ringers 500 ML 999 ML IV (07:36)
[2018-08-29 08:00] VITALS: BP 125/62; PULSE 73; RESP 18; TEMP 36.8; O2SAT 98
[2018-08-29] MEDS: Ibuprofen 600 MG Tablet PO (11:25)
[2018-08-29 14:00] VITALS: RESP 18
[2018-08-29 14:09] VITALS: BP 133/76; PULSE 86; RESP 18; TEMP 36.9; O2SAT 98
--- NOTE | 2018-08-29 14:31 | CASEMGMT ---
Social Work Assessment Referral Date: 08/29/2018 Date of Assessment: 08/29/2018 Reason for consult: New diagnosis of breast cancer Informant: YULISSA Personal Status: SW met with pt to complete initial assessment and to provide diagnose related support. SW introduced self and role at [facility]. Pt is alert and orientated x3. Pt states that she lives with her and daughter. Pt states that she was previously independent with ADLs and still works. Pt's PCP is Cat Alanis and pt states her preferred pharmacy was [facility] but now it is [facility]. Substance Abuse Hx: Pt denied Mental Health Hx: Pt denied. Pt does state she has some anxiety. SW asked pt about recent diagnosis of Breast Cancer. Pt states that she was just diagnosis with Breast Cancer the end of July 2018. SW offered support to pt. Pt states that her daughter and are good support for pt. Pt states that when her daughter is able to get off work she will go to appointments with pt. SW asked pt if she feels she needs any additional resources at this time. Pt denied. 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
[2018-08-29 21:01] VITALS: BP 117/81; PULSE 71; RESP 18; TEMP 36.9; O2SAT 95
[2018-08-29] MEDS: Famotidine 20 MG Tablet PO (21:26)
[2018-08-30] MEDS: HYDROcodone Bitartrate/Apap 5/325 Tablet PO ×2 (00:07→07:38)
[2018-08-30] MEDS: Ibuprofen 600 MG Tablet PO ×2 (03:09→09:59)
[2018-08-30 03:20] VITALS: BP 128/77; PULSE 74; RESP 18; TEMP 36.8; O2SAT 97
[2018-08-30] MEDS: Levothyroxine 50 MCG Tablet PO (05:45)
[2018-08-30 05:50] VITALS: BP 125/69; PULSE 70; RESP 18; TEMP 37.2; O2SAT 96
--- NOTE | 2018-08-30 07:42 | PCM.PN.SRG ---
Subjective: Patient is feeling well, ready to go home - Physical Exam General: Alert, Oriented x3 Oral: Moist Mucosa Neck: Supple Lungs: Normal air movement Vital Signs Temp Pulse Resp BP Pulse Ox 98.9 F 70 18 125/69 H 96 08/30/18 05:50 08/30/18 05:50 08/30/18 05:50 08/30/18 05:50 08/30/18 05:50 Oxygen Flow Rate (L/min) 2 Oxygen Delivery Method Room Air Weight: 90 kg Body Mass Index (BMI) 35.1 Intake and Output for Last 24 Hours 08/28/18 08/29/18 08/30/18 23:59 23:59 23:59 Intake Total 2069 / 0 5126 / 5126 1126 / 1126 Output Total 44 / 44 1809 / 1809 130 / 130 Balance 2025 / 2025 3317 / 3317 996 / 996 Medical Necessity - Tobacco Use Smoking Status: Never smoker Assessment/Plan All Active Problems Family history of colon cancer in mother (Acute) Choking sensation (Acute) Atypical chest pain (Acute) Impression: POD#2 s/p bilateral mastectomies Plan: d/c to home today, patient to follow up on Tuesday encouraged ambulation and incentive spirometry
--- NOTE | 2018-08-30 07:45 | DCINST_ITS ---
Discharge Diet: No Restrictions - drink plenty of fluids Discharge Activity: Return to Normal Activity, May not drive while taking narcot ic pain medications. Lifting Restrictions: no lifting greater than 5 pounds on each arm Call your doctor if your incision/area has: Continuous Slow Oozing, Foul Smelling Discharge Call your doctor if you observe: Fever of 101 or Higher Additional Dressing/Incision Instructions:: Leave dressings in place. Sponge bathe only. Empty drains as demonstrated Allergies/Adverse Reactions: Allergies amoxicillin [From Augmentin] Adverse Reaction (Verified 08/14/18 14:18) Nausea clavulanic acid [From Augmentin] Adverse Reaction (Verified 08/14/18 14:18) Nausea Medications to take at Discharge Levothyroxine Sodium [Synthroid] 50 mcg PO DAILY 12/21/17 Metoprolol Tartrate 50 mg PO DAILY 08/14/18 Losartan Potassium [Cozaar] 25 mg PO DAILY 08/15/18 Omeprazole 40 mg PO DAILY 08/15/18 Doxycycline 100 mg PO BID #28 cap 08/29/18 Hydrocodone/Acetaminophen [Dillard 5-325 Tablet] 1 ea PO Q8 5 Days #15 tab 08/29/18 proMETHazine tablet [Phenergan tablet] 25 mg PO Q8H PRN PRN 5 Days #5 tab 08/29/18 The following prescriptions were given: proMETHazine tablet [Phenergan tablet] 25 mg PO Q8H PRN PRN 5 Days #5 tab PRN Reason: Nausea/Vomiting Hydrocodone/Acetaminophen [Dillard 5-325 Tablet] 1 ea PO Q8 5 Days #15 tab Doxycycline 100 mg PO BID #28 cap Primary Care Physician: Cat Alanis PA-C [Primary Care Provider] - Please Follow Up With: Kate Mcelroy MD - When: to be seen on September 01
--- NOTE | 2018-08-30 07:45 | PCM.DC.BLA ---
Discharge Summary Date of Admission: 08/28/18 Date of Discharge: 08/30/18 Summary: Donna Ponce is a 53 y/o WF who presents with right breast cancer of upper outer quadrant. She had opted for surgical treatment of right breast mastectomy and also wanted prophylactic left breast mastectomy. This was done on 2018. Patient had no complications intraoperative. Postoperatively, patient had normal recovery. Initially planned discharge for POD#1, but patient was uncomfortable with this and therefore was discharged on POD#2. Discharged on regular diet, VSS. Discharge medications: doxycycline, norco prn, phenergan prn Follow up: 09/01/18 - Physical Exam Vital Signs Temp Pulse Resp BP Pulse Ox 98.9 F 70 18 125/69 H 96 08/30/18 05:50 08/30/18 05:50 08/30/18 05:50 08/30/18 05:50 08/30/18 05:50 Oxygen Flow Rate (L/min) 2 Oxygen Delivery Method Room Air Weight: 90 kg Body Mass Index (BMI) 35.1 Intake and Output for Last 24 Hours 08/28/18 08/29/18 08/30/18 23:59 23:59 23:59 Intake Total 2069 / 2069 5126 / 5126 1126 / 1126 Output Total 44 / 44 1809 / 1809 130 / 130 Balance 2025 3317 / 3317 996 / 996
[2018-08-30 09:36] VITALS: BP 128/70; PULSE 68; RESP 18; TEMP 36.9; O2SAT 97
[2018-08-30 09:38] VITALS: PULSE 68
[2018-08-30] MEDS: Metoprolol Tartrate 50 MG Tablet PO (09:38)
[2018-08-30] MEDS: Famotidine 20 MG Tablet PO (09:39)
[2018-08-30] MEDS: Losartan Potassium 25 MG Tablet PO (09:39)
== END 2018-08-30 11:17 | disposition home or self-care (01) ==
LOC: SDC 13:28
PROVIDERS: Surgery; Admitting Provider Surgery; Family Provider Family Medicine; PCP Family Medicine; Referring Provider Surgery; Visit Provider Surgery
PROC: (CPT 19307; principal; 2018-08-28 10:15)
PROC: (CPT 19303; 2018-08-28 10:15)
DX: C50.911 Malignant neoplasm of unspecified site of right female breast (principal); I10 Essential (primary) hypertension; E03.9 Hypothyroidism, unspecified; Z79.899 Other long term (current) drug therapy; K21.9 Gastro-esophageal reflux disease without esophagitis; K44.9 Diaphragmatic hernia without obstruction or gangrene
CPT/HCPCS: 00404; 19303; 19307; 38792; 88307; 88331; 88332; 88341; 88342; 96361; 96365; 96366; 96375; 96376; 97802; 99218; A9541; J7120; A4216; G0378; G0379; J2405; J3490

== ENCOUNTER 2018-12-25 08:20 | Inpatient (IN) | payer OTHER, SELFPAY ==
[2018-08-28 15:32] VITALS: BMI 35.1
[2018-12-25] VITALS (8 sets, daily range): BP systolic 115–163; BP diastolic 64–81; PULSE 85–120; RESP 13–20; TEMP 36.7–37.6; O2SAT 94–98; BMI 35.0; BMI 28.0
--- NOTE | 2018-12-25 09:01 | RAD_ITS ---
STUDY: X-RAY CHEST REASON FOR EXAM: Female, 53 years old. Fever, malignancy. TECHNIQUE: PA and lateral chest COMPARISON: 02/23/2018. FINDINGS: The lungs are clear and expanded. Normal cardiomediastinal silhouette, taylor and pleural margins. No acute osseous or upper abdominal process. RAD/Chest PA and Lateral IMPRESSION: No acute cardiopulmonary process. Electronically Signed: David Olivo MD at 10:52 EDT Tel , Service support ,
--- NOTE | 2018-12-25 09:04 | ED.VISSUMM ---
- ER Visit Summary Date of Service: 12/25/18 Chief Complaint: Fever on chemotherapy History of Present Illness: The patient is a 53 F history of breast CA without metastases stage I. Bilateral mastectomies. Had her first round of chemotherapy December 14. Overnight developed chills and a fever. Associated nausea. She is had diarrhea from the chemotherapy. No abdominal pain. No chest pain. Mild cough. Nonproductive. No dysuria. No sore throat or earaches. Physical Examination: Vital signs are stable initial temperature is 996. Pulse ox 95% on room air no hypoxia. HEENT exam unremarkable. TMs normal. Posterior pharynx unremarkable. Moist weeks memories. Neck nontender no lymphadenopathy. No meningismus. Lungs clear to auscultation bilaterally. Heart tachycardic rate about 120 no murmur. Chest wall nontender. Abdomen soft nontender. Normal bowel sounds no peritoneal signs. Extremities moves all 4. No cellulitis. No edema. Vascular intact. Back nontender. Neurologically she is awake alert with no focal motor deficits. Test Results: Chest x-ray showed no acute process 2 views read by myself. White count 3.5 hemoglobin 11.2 0.0% segmented neutrophils. Chemistries potassium 3.2 normal creatinine and gap liver enzymes normal UA normal. Lactic acid 2.6. Blood cultures pending. Urine culture pending. Emergency Department Course and Treatment: Patient will go through a work-up for fever and possible neutropenia. She will receive IV fluids, Zofran and p.o. Tylenol. Treatment Plan: Repeat exam patient is doing well at 1014 and 10:30 AM. She is been given a liter of fluid IV Zofran and Tylenol. Due to her neutropenia and fever she will be started on IV Zosyn. And admitted to the hospital. I very spoken to our hospitalist, Dr. Cabrera and the patient's oncologist from [facility]. Disposition: [place] Impression: Acute neutropenic fever on chemotherapy uncertain etiology History of breast CA with bilateral mastectomies This note was generated with [employer] dictation software. It may contain incorrect words, spelling, and punctuation that were not noted in review of the chart prior to signing ED Disposition - Plan for ED Patient: Referrals: Cat Alanis PA-C [Primary Care Provider] -
[2018-12-25] MEDS: Acetaminophen 500 MG Tablet 1000 MG PO (09:17)
[2018-12-25] MEDS: 0.9% Normal Saline 1,000 ML 999 ML IV (09:18)
[2018-12-25] MEDS: Ondansetron 4 MG/2 ML Vial IV ×2 (09:18→17:44)
[2018-12-25 09:20] LABS: Red Blood Cells-Urine 0 SEEN /hpf (0-5); White Blood Cells 0 SEEN /hpf (0-5)
[2018-12-25 09:23] LABS: Color, Urine Yellow (Yellow); Glucose, Dipstick Normal (Normal); Ketone-Dipstick 5 mg/dl (Negative); Leukocyte Esterase-Dipstick Negative /ul (Negative); Nitrite-Dipstick Negative (Negative); Occult Blood-Urine Negative /ul (Negative); Protein-Dipstick 15 mg/dl (Negative); Specific Gravity, Urine 1.025 (1.002-1.030); Urine Bilirubin Dipstick Negative (Negative); Urine Clarity Clear (Clear); Urine Urobilinogen Normal (Normal)
[2018-12-25 09:31] LABS: Absolute Lymphocyte Count 1.46 X10^3/ul (0.83-4.51); Basophil# 0.08 X10^3/uL; Basophil% 2.3 % (0-1); Eosinophil# 0.03 X10^3/uL; Eosinophils% 0.9 % (0-5); Hematocrit 34.1 % (37-47); Hemoglobin 11.2 g/dl (12.0-15.0); Lymphocyte # 1.46 X10^3/ul (4.0); Lymphocyte % 41.6 % (19-41); Mean Corp Hgb Conc 32.8 g/gl (32-36); Mean Corpuscular Hgb 28.3 pg (27.0-32.0); Mean Corpuscular Volume 86.1 fL (81-99); Mean Platelet Vol. 9.9 fl (6.2-12.0); Monocyte# 1.82 X10^3/uL; Monocyte% 51.9 % (0-10); Platelet Count 317 K/mm3 (150-450); RBC Distribution Width CV 12.8 % (11.6-14.6); RBC Distribution Width SD 40.1 fl (35.1-43.9); Red Blood Count 3.96 M/mm3 (4.2-5.4); White Blood Count 3.5 K/mm3 (4.4-11.0)
[2018-12-25 09:32] LABS: POSITIVE COUNT NO; POSITIVE DIFFERENTIAL YES; POSITIVE MORPHOLOGY YES
[2018-12-25 09:33] LABS: Differential Indicated SCAN CRITERIA MET
[2018-12-25 09:38] LABS: Bacteria RARE /hpf (None Seen); Mucous, Urine 2+ /hpf (<or=2+); Squamous Epithelial Cells - UA 0-5 SEEN /hpf (5-10)
[2018-12-25 09:40] LABS: ALB/GLOB Ratio 0.8 RATIO (0.9-2.4); AST(SGOT) 22 U/L (15-37); Alanine Aminotransfer ALT/SGPT 50 U/L (13-56); Albumin, Serum 3.3 g/dL (3.2-5.0); Alkaline Phosphatase 73 U/L (45-117); Anion Gap 9 (5-15); BUN 11 mg/dL (7-18); BUN/Creat Ratio 11.1 RATIO (10-20); Calcium,Total 8.6 mg/dL (8.5-10.1); Chloride 104 mmol/L (98-107); Creatinine, Serum 0.99 mg/dL (0.55-1.02); EST Glomerular Filtration Rate 63 mL/min (>60); Est Glom Filt Rate - Afr Amer 76 mL/min (>60); Estimated Creatinine Clearance 55.61 ml/min; Globulin 3.9 g/dL (2.2-4.2); Glucose 117 mg/dL (74-106); Potassium 3.2 mmol/L (3.5-5.1); Protein, Total 7.2 g/dL (6.4-8.2); Sodium Level 138 mmol/L (136-145)
[2018-12-25 09:42] LABS: Lactic Acid 2.6 mmol/L (0.4-2.0)
--- NOTE | 2018-12-25 09:45 | ED.RN ---
DR HICKS NOTIFIED LACTIC=2.6. NNO VOICED.
--- NOTE | 2018-12-25 10:43 | PCM.HP.STD ---
Problem List (1) Neutropenia Status: Acute Qualifiers: Neutropenia type: secondary to cancer chemotherapy Qualified Code(s): D70.1 - Agranulocytosis secondary to cancer chemotherapy; T45.1X5A - Adverse effect of antineoplastic and immunosuppressive drugs, initial encounter (2) Breast cancer Status: Acute Qualifiers: Breast location: unspecified site of breast Estrogen receptor status: unspecified Patient sex: female Laterality: bilateral Qualified Code(s): C50.911 - Malignant neoplasm of unspecified site of right female breast; C50.912 - Malignant neoplasm of unspecified site of left female breast (3) Hypokalemia Status: Acute (4) Hypertension Status: Chronic Qualifiers: Hypertension type: essential hypertension Qualified Code(s): I10 - Essential (primary) hypertension (5) Hypothyroidism Status: Chronic Qualifiers: Hypothyroidism type: unspecified Qualified Code(s): E03.9 - Hypothyroidism, unspecified History of Present Illness Date of Admission: 12/25/18 Chief Complaint: Fever - 1 day The patient is a 53 year old F with past medical history of breast cancer status post bilateral mastectomy, follows with oncology in the [facility] who comes in with complaints of fever and chills. Patient had a routine follow-up with her general surgeon and had complained of having chills and fever. They took the temperature 98 surgeon's office and was 101.3F. Denied any dizziness or palpitations or shortness of breath. She admitted to some upper respiratory nasal congestion over the weekend prior to the admission. He has some diarrhea with the chemotherapy but no more. She last had chemotherapy on 14 December 2018. She says she was just starting to feel better. Vitals in the ED showed temperature of 90 9.6F, heart rate is 120, blood pressure 163/81, respiratory rate was 20, SPO2 is 95% on room air. Meeting white cell count was 3.5, absolute neutrophil count was 0, hemoglobin 11.2, platelet 317, BUN was unremarkable except for potassium of 3.2. Lactic acid was 2.6, LFTs unremarkable. UA is unremarkable, chest x-ray is also unremarkable. Past Medical History Past Medical History (Chronic Problems): Chronic Problems Anxiety disorder (Chronic) Hypertension (Chronic) Hypothyroidism (Chronic) Allergies amoxicillin [From Augmentin] Adverse Reaction (Verified 12/25/18 08:21) Nausea clavulanic acid [From Augmentin] Adverse Reaction (Verified 12/25/18 08:21) Nausea Home Medications: Ambulatory Orders Medication Instructions Recorded Levothyroxine Sodium [Synthroid] 50 mcg PO DAILY 12/21/17 Losartan Potassium [Cozaar] 25 mg PO DAILY 08/15/18 Omeprazole 40 mg PO DAILY 08/15/18 Calcium (Elemental) [Os-Kailash 500] 500 mg PO DAILY@0800 12/25/18 Ergocalciferol [Vitamin D] 50,000 unit PO Q7D 12/25/18 Surgical History: mastectomy - bilateral Psychiatric History: Anxiety 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 Denies: Weight Change Eyes: Denies: Blurred vision, Cataracts, Conjunctivae Inflammation, Pain, Redness HEENT: Denies: Difficulty Hearing, Difficulty Swallowing, Head Aches, Hearing Changes, Sinus Congestion, Sinus Drainage, Sore Throat Cardiovascular: Denies: Chest Pain, Claudication, Chest Pressure, Orthopnea, Palpitations, Paroxysmal Noc. Dyspnea Respiratory: Denies: Cough, Hemoptysis, Shortness of breath at rest, Shortness of breath upon exertion, Sputum production Gastrointestinal: Denies: Abdominal Pain, Hematemesis, Hematochezia, Nausea, Vomiting Genitourinary: Denies: Dysuria, Frequency, Incontinence Musculoskeletal: Denies: Joint Pain, Joint stiffness, Joint swelling, Joint Tenderness Skin: Denies: Rash, Wounds Neurological: Denies: Difficulty swallowing, Focal weakness, Numbness, Tingling Psychiatric: Denies: Anxiety, Depression, Homicidal Ideations, Suicidal Ideations Endocrine: Denies: Polyuria, Hx of Irradiation Hematologic/ Lymphatic: Denies: Easy Bruising, Easy Bleeding VTE Information - Inpt Only VTE Present on Admission: No VTE Pharm Prophylaxis ordered?: Yes Patient Problems: Active and Suspected Problems Neutropenia (Acute) Breast cancer (Acute) Hypokalemia (Acute) - Physical Exam General: Alert, Oriented x3, Cooperative, No apparent distress HEENT: Atraumatic, PERRLA, EOMI, Normocephalic Oral: Moist Mucosa Neck: Supple, No JVD Lungs: Clear to auscultation, Normal air movement Cardiovascular: Regular rate, Regular Rhythm, Normal S1, Normal S2, No murmurs Abdomen: Bowel Sounds Present, Soft, Non Tender, Non-Distended, No Hepato-splenomegaly Extremities: No edema Skin: No rashes Musculoskeletal: No Tenderness to Palpation of Joints or Extremities Lymphatic: No Cervical, Supraclavicular, or Inguinal Adenopathy Neurological: Cranial nerves II-XII grossly intact, Neuro grossly intact Psych/Mental Status: Normal Affect, Appropriate Vital Signs Temp Pulse Resp BP Pulse Ox 98.5 F 98 17 115/67 94 12/25/18 10:23 12/25/18 10:23 12/25/18 10:23 12/25/18 10:23 12/25/18 10:23 Oxygen Delivery Method Room Air Weight: 89.811 kg Body Mass Index (BMI) 35.0 Laboratory Tests Past 24 Hrs 12/25/18 12/25/18 12/25/18 09:05 09:05 09:05 WBC 3.5 L RBC 3.96 L Hgb 11.2 L Hct 34.1 L MCV 86.1 MCH 28.3 MCHC 32.8 RDW 12.8 RDW Differential 40.1 Plt Count 317 MPV 9.9 Neut % (Auto) 0.0 L Lymph % (Auto) 41.6 H [place] % (Auto) 51.9 H Eos % (Auto) 0.9 Baso % (Auto) 2.3 H Absolute Neuts (auto) 0.0 L Absolute Lymphs (auto) 1.46 Total Counted Not Reportable Differential Comment COMMENT Sodium 138 Potassium 3.2 L Chloride 104 Carbon Dioxide 25.0 Anion Gap 9 BUN 11 Creatinine 0.99 Estim Creat Clear Calc 55.61 Est GFR (MDRD) Af Amer 76 Est GFR (MDRD) Non-Af 63 BUN/Creatinine Ratio 11.1 Glucose 117 H Lactic Acid 2.6 H Calcium 8.6 Total Bilirubin 0.30 AST 22 ALT 50 Alkaline Phosphatase 73 Total Protein 7.2 Albumin 3.3 Globulin 3.9 Albumin/Globulin Ratio 0.8 L Urine Color Urine Clarity Urine pH Ur Specific [place] Urine Protein Urine Glucose (UA) Urine Ketones Urine Occult Blood Urine Nitrite Urine Bilirubin Urine Urobilinogen Ur Leukocyte Esterase Urine RBC Urine WBC Ur Squamous Epith Cells Urine Bacteria Urine Mucus 12/25/18 09:05 WBC RBC Hgb Hct MCV MCH MCHC RDW RDW Differential Plt Count MPV Neut % (Auto) Lymph % (Auto) [place] % (Auto) Eos % (Auto) Baso % (Auto) Absolute Neuts (auto) Absolute Lymphs (auto) Total Counted Differential Comment Sodium Potassium Chloride Carbon Dioxide Anion Gap BUN Creatinine Estim Creat Clear Calc Est GFR (MDRD) Af Amer Est GFR (MDRD) Non-Af BUN/Creatinine Ratio Glucose Lactic Acid Calcium Total Bilirubin AST ALT Alkaline Phosphatase Total Protein Albumin Globulin Albumin/Globulin Ratio Urine Color Yellow Urine Clarity Clear Urine pH 5.0 Ur Specific [place] 1.025 Urine Protein 15 H Urine Glucose (UA) Normal Urine Ketones 5 H Urine Occult Blood Negative Urine Nitrite Negative Urine Bilirubin Negative Urine Urobilinogen Normal Ur Leukocyte Esterase Negative Urine RBC 0 SEEN Urine WBC 0 SEEN Ur Squamous Epith Cells 0-5 SEEN Urine Bacteria RARE Urine Mucus 2+ Assessment/Plan All Active Problems Family history of colon cancer in mother (Acute) Choking sensation (Acute) Atypical chest pain (Acute) Neutropenia (Acute) Breast cancer (Acute) Hypokalemia (Acute) 53 year old F with past medical history of breast cancer status post bilateral mastectomy, follows with oncology in the [facility] who comes in with complaints of fever and chills. 1. Neutropenic fever, patient on chemotherapy for breast CA, WBC count is 3.5, absolute neutrophil count is 0 Plan: Admit to MedSurg, monitor per protocol, neutropenic isolations/precautions, Meropenem IV, Oncology consult, repeat labs in am 2. Hypokalemia, replaced, recheck in am 3. Hypothyroidism, on levothyroxine 4. Hypertension, controlled, on Losartan, will continue to monitor 5. Breast CA s/p bilateral mastectomies 6. DVT PPx- Heparin SC Code Visit Inpatient E&M: 79326 Init Hosp L3
[2018-12-25] MEDS: 0.9% Normal Saline 1,000 ML 100 ML IV (12:18)
[2018-12-25 13:17] LABS: Reflex Lactate? Y
[2018-12-25] MEDS: Heparin Injection (Vial) 5,000 UNIT/ML VIAL 5000 UNIT SC ×2 (14:03→21:37)
[2018-12-25 14:21] LABS: Lactic Acid 1.1 mmol/L (0.4-2.0)
--- NOTE | 2018-12-25 17:00 | CON.PCM_ITS ---
Problem List (1) Neutropenia Status: Acute Qualifiers: Neutropenia type: secondary to cancer chemotherapy Qualified Code(s): D70.1 - Agranulocytosis secondary to cancer chemotherapy; T45.1X5A - Adverse effect of antineoplastic and immunosuppressive drugs, initial encounter (2) Fever and neutropenia Status: Acute (3) Breast cancer Status: Acute Qualifiers: Breast location: unspecified site of breast Estrogen receptor status: positive Patient sex: female Laterality: right Qualified Code(s): C50.911 - Malignant neoplasm of unspecified site of right female breast; Z17.0 - Estrogen receptor positive status [ER+] - Consult Date of Consult: 12/25/[address] Carty about a lady with stage Ic, ER positive HER-2 negative right breast cancer who presented with neutropenic fever after cycle of chemotherapy. My final recommendation will be communicated to the emergency room physician by electronic medical records. - Reason for Consult History of Present Illness Date of Admission: 12/25/18 Chief Complaint: Fever with neutropenia The patient is a 53 year old F with past medical history of breast cancer status post bilateral mastectomy, or stage Ic ER positive HER-2 negative right breast cancer; patient had a prophylactic left mastectomy along with right mastectomy with sentinel lymph node biopsy in August 2018. Oncotype DX recurrence score 16, absolute benefit of 1.6% with adjuvant chemotherapy in addition to endocrine therapy. Patient had a second opinion in [place] last month and started adjuvant chemotherapy with docetaxel and cyclophosphamide without Neulasta 2 weeks ago[address] She saw Dr. Mcelroy for follow-up visit this morning with complaints of fever and chills. Fatigue after chemotherapy but has no significant nausea vomiting. She had diarrhea last weekend. Her temperature was 101.3F. Denied any dizziness or palpitations or shortness of breath. She admitted to some cough and nasal congestion over the weekend prior to the admission. Vitals in the ED showed temperature of 99.6F, heart rate is 120, blood pressure 163/81, respiratory rate was 20, SPO2 is 95% on room air. Meeting white cell count was 3.5, absolute neutrophil count was 0.0, hemoglobin 11.2, platelet 317, BUN was unremarkable except for potassium of 3.2. Lactic acid was 2.6 elevat ed, LFTs unremarkable. UA is unremarkable, chest x-ray is also unremarkable. Past Medical History Past Medical History (Chronic Problems): Chronic Problems Anxiety disorder (Chronic) Hypertension (Chronic) Hypothyroidism (Chronic) Allergies amoxicillin [From Augmentin] Adverse Reaction (Verified 12/25/18 08:21) Nausea clavulanic acid [From Augmentin] Adverse Reaction (Verified 12/25/18 08:21) Nausea Home Medications: Ambulatory Orders Medication Instructions Recorded Levothyroxine Sodium [Synthroid] 50 mcg PO DAILY 12/21/17 Losartan Potassium [Cozaar] 25 mg PO DAILY 08/15/18 Omeprazole 40 mg PO DAILY 08/15/18 Calcium (Elemental) [Os-Kailash 500] 500 mg PO DAILY@0800 12/25/18 Ergocalciferol [Vitamin D] 50,000 unit PO Q7D 12/25/18 Surgical History: mastectomy - bilateral Psychiatric History: Anxiety [employer] 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 Denies: Weight Change Eyes: Denies: Blurred vision, Cataracts, Conjunctivae Inflammation, Pain, Redness HEENT: Denies: Difficulty Hearing, Difficulty Swallowing, Head Aches, Hearing Changes, Sinus Congestion, Sinus Drainage, Sore Throat Cardiovascular: Denies: Chest Pain, Claudication, Chest Pressure, Orthopnea, Palpitations, Paroxysmal Noc. Dyspnea Respiratory: Denies: Cough, Hemoptysis, Shortness of breath at rest, Shortness of breath upon exertion, Sputum production Gastrointestinal: Denies: Abdominal Pain, Hematemesis, Hematochezia, Nausea, Vomiting Genitourinary: Denies: Dysuria, Frequency, Incontinence Musculoskeletal: Denies: Joint Pain, Joint stiffness, Joint swelling, Joint Tenderness Skin: Denies: Rash, Wounds Neurological: Denies: Difficulty swallowing, Focal weakness, Numbness, Tingling Psychiatric: Denies: Anxiety, Depression, Homicidal Ideations, Suicidal Ideations Endocrine: Denies: Polyuria, Hx of Irradiation Hematologic/ Lymphatic: Denies: Easy Bruising, Easy Bleeding - Physical Exam General: Alert, Oriented x3, Cooperative, No apparent distress HEENT: Atraumatic, PERRLA, EOMI, Normocephalic Oral: Moist Mucosa Neck: Supple, No JVD CHEST: Bilateral mastectomy sites healed, no evidence of infection or cellulitis. Lungs: Clear to auscultation, Normal air movement Cardiovascular: Regular rate, Regular Rhythm, Normal S1, Normal S2, No murmurs Abdomen: Bowel Sounds Present, Soft, Non Tender, Non-Distended, No Hepato- splenomegaly Extremities: No edema Skin: No rashes Musculoskeletal: No Tenderness to Palpation of Joints or Extremities Lymphatic: No Cervical, Supraclavicular, or Inguinal Adenopathy Neurological: Cranial nerves II-XII grossly intact, Neuro grossly intact Psych/Mental Status: Normal Affect, Appropriate Vital Signs Temp Pulse Resp BP Pulse Ox 98.5 F 98 17 115/67 94 12/25/18 10:23 12/25/18 10:23 12/25/18 10:23 12/25/18 10:23 12/25/18 10:23 Oxygen Delivery Method Room Air Weight: 89.811 kg Body Mass Index (BMI) 35.0 Laboratory Tests Past 24 Hrs 12/25/18 12/25/18 12/25/18 09:05 09:05 09:05 WBC 3.5 L RBC 3.96 L Hgb 11.2 L Hct 34.1 L MCV 86.1 MCH 28.3 MCHC 32.8 RDW 12.8 RDW Differential 40.1 Plt Count 317 MPV 9.9 Neut % (Auto) 0.0 L Lymph % (Auto) 41.6 H [place] % (Auto) 51.9 H Eos % (Auto) 0.9 Baso % (Auto) 2.3 H Absolute Neuts (auto) 0.0 L Absolute Lymphs (auto) 1.46 Total Counted Not Reportable Differential Comment COMMENT Sodium 138 Potassium 3.2 L Chloride 104 Carbon Dioxide 25.0 Anion Gap 9 BUN 11 Creatinine 0.99 Estim Creat Clear Calc 55.61 Est GFR (MDRD) Af Amer 76 Est GFR (MDRD) Non-Af 63 BUN/Creatinine Ratio 11.1 Glucose 117 H Lactic Acid 2.6 H Calcium 8.6 Total Bilirubin 0.30 AST 22 ALT 50 Alkaline Phosphatase 73 Total Protein 7.2 Albumin 3.3 Globulin 3.9 Albumin/Globulin Ratio 0.8 L Urine Color Urine Clarity Urine pH Ur Specific [place] Urine Protein Urine Glucose (UA) Urine Ketones Urine Occult Blood Urine Nitrite Urine Bilirubin Urine Urobilinogen Ur Leukocyte Esterase Urine RBC Urine WBC Ur Squamous Epith Cells Urine Bacteria Urine Mucus 12/25/18 09:05 WBC RBC Hgb Hct MCV MCH MCHC RDW RDW Differential Plt Count MPV Neut % (Auto) Lymph % (Auto) [place] % (Auto) Eos % (Auto) Baso % (Auto) Absolute Neuts (auto) Absolute Lymphs (auto) Total Counted Differential Comment Sodium Potassium Chloride Carbon Dioxide Anion Gap BUN Creatinine Estim Creat Clear Calc Est GFR (MDRD) Af Amer Est GFR (MDRD) Non-Af BUN/Creatinine Ratio Glucose Lactic Acid Calcium Total Bilirubin AST ALT Alkaline Phosphatase Total Protein Albumin Globulin Albumin/Globulin Ratio Urine Color Yellow Urine Clarity Clear Urine pH 5.0 Ur Specific [place] 1.025 Urine Protein 15 H Urine Glucose (UA) Normal Urine Ketones 5 H Urine Occult Blood Negative Urine Nitrite Negative Urine Bilirubin Negative Urine Urobilinogen Normal Ur Leukocyte Esterase Negative Urine RBC 0 SEEN Urine WBC 0 SEEN Ur Squamous Epith Cells 0-5 SEEN Urine Bacteria RARE Urine Mucus 2+ Chest x-ray: No active disease Assessment/Plan All Active Problems Neutropenia with fever (Acute) Breast cancer (chronic) Status post bilateral mastectomy (chronic) Impression: 53-year-old postmenopausal lady with stage Ic ER [place] positive HER-2 negative right breast cancer status post bilateral mastectomy. Present with neutropenia with fever without source of infection, 2 weeks after her first cycle of adjuvant chemotherapy. She did not receive growth factor or Neulasta after her initial chemotherapy treatment. However, she is immunocompromised with severe neutropenia, possible dehydration and elevated lactic acid level. Plan: -Agree with admission for evaluation and treatment of neutropenic fever secondary to chemotherapy -Continue broad-spectrum antibiotic; meropenem until blood cultures are negative after 48 hours -Monitor CBC daily -DVT prophylaxis. -She will need Neulasta with her subsequent cycle of chemotherapy from now on. -She will follow-up with Dr. Zhou next week for chemotherapy after discharge. cc : Dr. Carrie Zhou, Dr. Zulema Carty, Dr. Jaguar Goldberg, [facility]
[2018-12-25] MEDS: Acetaminophen 325 MG Tablet 650 MG PO (17:43)
[2018-12-25] MEDS: 0.9% NaCl Peripheral Flush Adult/Peds IV (17:44)
[2018-12-25] MEDS: Ibuprofen 600 MG Tablet PO (22:49)
[2018-12-26 01:30] VITALS: BP 129/75; PULSE 87; RESP 16; TEMP 37; O2SAT 94
[2018-12-26] MEDS: 0.9% Normal Saline 1,000 ML 100 ML IV (04:58)
[2018-12-26] MEDS: Heparin Injection (Vial) 5,000 UNIT/ML VIAL 5000 UNIT SC ×3 (05:01→21:56)
[2018-12-26] MEDS: Levothyroxine 50 MCG Tablet PO (05:02)
[2018-12-26 06:16] LABS: Hemoglobin 10.1 g/dl (12.0-15.0); Mean Corp Hgb Conc 32.6 g/gl (32-36); Mean Corpuscular Hgb 28.2 pg (27.0-32.0); Mean Corpuscular Volume 86.6 fL (81-99); Mean Platelet Vol. 10.1 fl (6.2-12.0); Platelet Count 260 K/mm3 (150-450); RBC Distribution Width CV 12.6 % (11.6-14.6); Red Blood Count 3.58 M/mm3 (4.2-5.4); White Blood Count 4.3 K/mm3 (4.4-11.0)
[2018-12-26 06:19] LABS: ALB/GLOB Ratio 0.8 RATIO (0.9-2.4); AST(SGOT) 23 U/L (15-37); Alanine Aminotransfer ALT/SGPT 46 U/L (13-56); Albumin, Serum 2.8 g/dL (3.2-5.0); Alkaline Phosphatase 63 U/L (45-117); Anion Gap 8 (5-15); BUN 9 mg/dL (7-18); BUN/Creat Ratio 11.9 RATIO (10-20); Calcium,Total 8.3 mg/dL (8.5-10.1); Chloride 110 mmol/L (98-107); Creatinine, Serum 0.76 mg/dL (0.55-1.02); EST Glomerular Filtration Rate 85 mL/min (>60); Est Glom Filt Rate - Afr Amer 103 mL/min (>60); Estimated Creatinine Clearance 69.26 ml/min; Globulin 3.3 g/dL (2.2-4.2); Glucose 101 mg/dL (74-106); Potassium 3.7 mmol/L (3.5-5.1); Protein, Total 6.1 g/dL (6.4-8.2); Sodium Level 142 mmol/L (136-145)
[2018-12-26 06:24] LABS: Differential Indicated MANUAL DIFF; POSITIVE COUNT YES; POSITIVE DIFFERENTIAL YES; POSITIVE MORPHOLOGY YES
[2018-12-26 07:03] LABS: Eosinophil 2 % (0-5); Lymphocyte 45 % (19-41); Metamyelocyte 7 % (0-1); Monocyte 34 % (0-10); Myelocyte 1 (0-0); Neutrophil-Band 2 % (0-5); Neutrophil-Segmented 8 % (47-70); Plasma Cell 1 %; Total Cells Counted 100 (MANUAL DIFF)
[2018-12-26 07:04] LABS: Absolute Lymphocyte Count 1.94 X10^3/ul (0.83-4.51); Lymphocyte # 1.94 X10^3/ul (4.0); Platelet Estimate ADEQUATE (ADEQ); Red Cell Morphology NORM C+C NORMAL (NORM C&C)
[2018-12-26 07:07] LABS: Absolute Neutrophil Count 0.4 X10^3/uL (2.0-7.7); Neutrophil # 0.43 X10^3/uL (2.7-7.7)
[2018-12-26 07:39] VITALS: BP 143/81; PULSE 84; RESP 16; TEMP 36.7; O2SAT 97
[2018-12-26] MEDS: Calcium (Elemental) 500 MG Tablet PO (07:44)
--- NOTE | 2018-12-26 07:44 | PN_ITS ---
Patient Problems: Active and Suspected Problems Neutropenia (Acute) Breast cancer (Acute) Hypokalemia (Acute) Fever and neutropenia (Acute) Subjective: She has no new complaint this morning. She denied stomatitis, or diarrhea. No nausea or vomiting. No cough orshortness of breath. She is afebrile and her blood and urine culture are still pending today, - Physical Exam General: Alert, Oriented x3, Cooperative, No apparent distress HEENT: Atraumatic, PERRLA, EOMI, Normocephalic Oral: Moist Mucosa, No Gingival or Mucosal Lesions/ Ulcerations Neck: Supple, No JVD Lungs: Clear to auscultation Cardiovascular: Regular rate, Regular Rhythm, Normal S1, Normal S2, No murmurs Abdomen: Bowel Sounds Present, Soft, Non Tender, Non-Distended, No Hepato- splenomegaly Extremities: No clubbing, No cyanosis, No edema Skin: No rashes Lymphatic: No Cervical, Supraclavicular, or Inguinal Adenopathy Neurological: Neuro grossly intact - Mastectomy sites are normal Psych/Mental Status: Normal Affect Vital Signs Temp Pulse Resp BP Pulse Ox 98.0 F 84 16 143/81 H 97 12/26/18 07:39 12/26/18 07:39 12/26/18 07:39 12/26/18 07:39 12/26/18 07:39 Oxygen Delivery Method Room Air Weight: 153 lb 0.013 oz Body Mass Index (BMI) 28.0 Intake and Output for Last 24 Hours 12/24/18 12/25/18 12/26/18 23:59 23:59 23:59 Intake Total 1053 / 1053 587 / 587 Balance 1053 / 1053 587 / 587 Laboratory Tests Past 24 Hrs 12/25/18 12/25/18 12/25/18 09:05 09:05 09:05 WBC 3.5 L RBC 3.96 L Hgb 11.2 L Hct 34.1 L MCV 86.1 MCH 28.3 MCHC 32.8 RDW 12.8 RDW Differential 40.1 Plt Count 317 MPV 9.9 Neut % (Auto) 0.0 L Lymph % (Auto) 41.6 H [place] % (Auto) 51.9 H Eos % (Auto) 0.9 Baso % (Auto) 2.3 H Absolute Neuts (auto) 0.0 L Absolute Lymphs (auto) 1.46 Total Counted Not Reportable Neutrophils % (Manual) Band Neutrophils % Lymphocytes % (Manual) Monocytes % (Manual) Eosinophils % (Manual) Metamyelocytes % Myelocytes % Plasma Cell % (Manual) Differential Comment COMMENT Diff Path Review Platelet Estimate RBC Morphology Sodium 138 Potassium 3.2 L Chloride 104 Carbon Dioxide 25.0 Anion Gap 9 BUN 11 Creatinine 0.99 Estim Creat Clear Calc 55.61 Est GFR (MDRD) Af Amer 76 Est GFR (MDRD) Non-Af 63 BUN/Creatinine Ratio 11.1 Glucose 117 H Lactic Acid 2.6 H Calcium 8.6 Total Bilirubin 0.30 AST 22 ALT 50 Alkaline Phosphatase 73 Total Protein 7.2 Albumin 3.3 Globulin 3.9 Albumin/Globulin Ratio 0.8 L Urine Color Urine Clarity Urine pH Ur Specific [place] Urine Protein Urine Glucose (UA) Urine Ketones Urine Occult Blood Urine Nitrite Urine Bilirubin Urine Urobilinogen Ur Leukocyte Esterase Urine RBC Urine WBC Ur Squamous Epith Cells Urine Bacteria Urine Mucus 12/25/18 12/25/18 12/26/18 09:05 13:45 05:30 WBC 4.3 L RBC 3.58 L Hgb 10.1 L Hct 31.0 L MCV 86.6 MCH 28.2 MCHC 32.6 RDW 12.6 RDW Differential 38.0 Plt Count 260 MPV 10.1 Neut % (Auto) Not Reportable Lymph % (Auto) [place] % (Auto) Eos % (Auto) Baso % (Auto) Absolute Neuts (auto) 0.4 L Absolute Lymphs (auto) 1.94 Total Counted 100 Neutrophils % (Manual) 8 L Band Neutrophils % 2 Lymphocytes % (Manual) 45 H Monocytes % (Manual) 34 H Eosinophils % (Manual) 2 Metamyelocytes % 7 H Myelocytes % 1 H Plasma Cell % (Manual) 1 Differential Comment Diff Path Review May foll Platelet Estimate ADEQUATE RBC Morphology NORM C+C Sodium Potassium Chloride Carbon Dioxide Anion Gap BUN Creatinine Estim Creat Clear Calc Est GFR (MDRD) Af Amer Est GFR (MDRD) Non-Af BUN/Creatinine Ratio Glucose Lactic Acid 1.1 Calcium Total Bilirubin AST ALT Alkaline Phosphatase Total Protein Albumin Globulin Albumin/Globulin Ratio Urine Color Yellow Urine Clarity Clear Urine pH 5.0 Ur Specific [place] 1.025 Urine Protein 15 H Urine Glucose (UA) Normal Urine Ketones 5 H Urine Occult Blood Negative Urine Nitrite Negative Urine Bilirubin Negative Urine Urobilinogen Normal Ur Leukocyte Esterase Negative Urine RBC 0 SEEN Urine WBC 0 SEEN Ur Squamous Epith Cells 0-5 SEEN Urine Bacteria RARE Urine Mucus 2+ 12/26/18 05:30 WBC RBC Hgb Hct MCV MCH MCHC RDW RDW Differential Plt Count MPV Neut % (Auto) Lymph % (Auto) [place] % (Auto) Eos % (Auto) Baso % (Auto) Absolute Neuts (auto) Absolute Lymphs (auto) Total Counted Neutrophils % (Manual) Band Neutrophils % Lymphocytes % (Manual) Monocytes % (Manual) Eosinophils % (Manual) Metamyelocytes % Myelocytes % Plasma Cell % (Manual) Differential Comment Diff Path Review Platelet Estimate RBC Morphology Sodium 142 Potassium 3.7 Chloride 110 H Carbon Dioxide 24.0 Anion Gap 8 BUN 9 Creatinine 0.76 Estim Creat Clear Calc 69.26 Est GFR (MDRD) Af Amer 103 Est GFR (MDRD) Non-Af 85 BUN/Creatinine Ratio 11.9 Glucose 101 Lactic Acid Calcium 8.3 L Total Bilirubin 0.40 AST 23 ALT 46 Alkaline Phosphatase 63 Total Protein 6.1 L Albumin 2.8 L Globulin 3.3 Albumin/Globulin Ratio 0.8 L Urine Color Urine Clarity Urine pH Ur Specific [place] Urine Protein Urine Glucose (UA) Urine Ketones Urine Occult Blood Urine Nitrite Urine Bilirubin Urine Urobilinogen Ur Leukocyte Esterase Urine RBC Urine WBC Ur Squamous Epith Cells Urine Bacteria Urine Mucus Medical Necessity - Tobacco Use Smoking Status: Never smoker Tobacco Use: Non-smoker Assessment/Plan All Active Problems Family history of colon cancer in mother (Acute) Choking sensation (Acute) Atypical chest pain (Acute) Neutropenia (Acute) Breast cancer (Acute) Hypokalemia (Acute) Fever and neutropenia (Acute) 1) Neutropenia with fever (Acute) -Neutropenia and leukopenia improving (ANC 400) -Remain afebrile and blood cultures are pending on broad-spectrum antibiotic Plan: -Discontinue meropenem if blood culture is negative this evening -Discharge home tomorrow morning if she remains stable -Follow-up with Dr. Cole next week in [place] for cycle 2 of TC -We will add Neulasta (growth factor) with subsequent cycles of chemotherapy -Also will start Claritin with Neulasta injection. 2) stage Ic ER positive HER-2 negative breast cancer (chronic); -Status post bilateral mastectomy (chronic) -receiving adjuvant chemotherapy with Taxotere and cyclophosphamide (day 14) Plan: -I again reviewed with patient the benefit of adjuvant chemotherapy versus endocrine therapy alone. -Since she has a low Oncotype DX recurrence score as well as low risk of recurrent with the PREDICT model, her overall chance for survival is still very good adjuvant hormonal therapy alone. The absolute benefit of adding adjuvant chemotherapy is still small (1.6% - 2.0%) 10-year survival benefit. -She understood the benefit and will discuss with Dr. Cole next week. cc: Dr. Kate Mcelroy, Dr. Zulema Carty, Cat Galicia PA-C, Dr. Zulema Carty
--- NOTE | 2018-12-26 07:56 | PN_ITS ---
Patient Problems: Active and Suspected Problems Neutropenia (Acute) Breast cancer (Acute) Hypokalemia (Acute) Fever and neutropenia (Acute) Subjective: Patient was seen and examined. She complains of feeling tired. No fevers, or chills or diarrhea. Objective: Physical Exam General: Alert, Oriented x3, Cooperative, No apparent distress HEENT: Atraumatic, PERRLA, EOMI, Normocephalic Oral: Moist Mucosa Neck: Supple, No JVD Lungs: Clear to auscultation, Normal air movement Cardiovascular: Regular rate, Regular Rhythm, Normal S1, Normal S2, No murmurs Abdomen: Bowel Sounds Present, Soft, Non Tender, Non-Distended, No Hepato- splenomegaly Extremities: No edema Skin: No rashes Musculoskeletal: No Tenderness to Palpation of Joints or Extremities Lymphatic: No Cervical, Supraclavicular, or Inguinal Adenopathy Neurological: Cranial nerves II-XII grossly intact, Neuro grossly intact Psych/Mental Status: Normal Affect, Appropriate Vitals/I&O's: Vital Signs Temp Pulse Resp BP Pulse Ox 98.0 F 84 16 143/81 H 97 12/26/18 07:39 12/26/18 07:39 12/26/18 07:39 12/26/18 07:39 12/26/18 07:39 Oxygen Delivery Method Room Air Weight: 69.4 kg Body Mass Index (BMI) 28.0 Intake and Output for Last 24 Hours 12/24/18 12/25/18 12/26/18 23:59 23:59 23:59 Intake Total 1053 / 1053 587 / 587 Balance 1053 / 1053 587 / 587 Laboratory Results 12/25/18 09:05: WBC 3.5 L, RBC 3.96 L, Hgb 11.2 L, Hct 34.1 L, MCV 86.1, MCH 28.3, MCHC 32.8, RDW 12.8, RDW Differential 40.1, Plt Count 317, MPV 9.9, Neut % (Auto) 0.0 L, Lymph % (Auto) 41.6 H, [place] % (Auto) 51.9 H, Eos % (Auto) 0.9, Baso % (Auto) 2.3 H, Absolute Neuts (auto) 0.0 L, Absolute Lymphs (auto) 1.46, Total Counted Not Reportable, Differential Comment COMMENT 12/25/18 09:05: Sodium 138, Potassium 3.2 L, Chloride 104, Carbon Dioxide 25.0, Anion Gap 9, BUN 11, Creatinine 0.99, Estim Creat Clear Calc 55.61, Est GFR (MDRD) Af Amer 76, Est GFR (MDRD) Non-Af 63, BUN/Creatinine Ratio 11.1, Glucose 117 H, Calcium 8.6, Total Bilirubin 0.30, AST 22, ALT 50, Alkaline Phosphatase 73, Total Protein 7.2, Albumin 3.3, Globulin 3.9, Albumin/Globulin Ratio 0.8 L 12/25/18 09:05: Lactic Acid 2.6 H 12/25/18 09:05: Urine Color Yellow, Urine Clarity Clear, Urine pH 5.0, Ur Spe cific [place] 1.025, Urine Protein 15 H, Urine Glucose (UA) Normal, Urine Ketones 5 H, Urine Occult Blood Negative, Urine Nitrite Negative, Urine Bili prather Negative, Urine Urobilinogen Normal, Ur Leukocyte Esterase Negative, Urine RBC 0 SEEN, Urine WBC 0 SEEN, Ur Squamous Epith Cells 0-5 SEEN, Urine Bacteria RARE, Urine Mucus 2+ 12/25/18 13:45: Lactic Acid 1.1 12/26/18 05:30: WBC 4.3 L, RBC 3.58 L, Hgb 10.1 L, Hct 31.0 L, MCV 86.6, MCH 28.2, MCHC 32.6, RDW 12.6, RDW Differential 38.0, Plt Count 260, MPV 10.1, Neut % (Auto) Not Reportable, Absolute Neuts (auto) 0.4 L, Absolute Lymphs (auto) 1.9 4, Total Counted 100, Neutrophils % (Manual) 8 L, Band Neutrophils % 2, Lymphocytes % (Manual) 45 H, Monocytes % (Manual) 34 H, Eosinophils % (Manual) 2, Metamyelocytes % 7 H, Myelocytes % 1 H, Plasma Cell % (Manual) 1, Diff Path Review November, Platelet Estimate ADEQUATE, RBC Morphology NORM C+C 12/26/18 05:30: Sodium 142, Potassium 3.7, Chloride 110 H, Carbon Dioxide 24.0, Anion Gap 8, BUN 9, Creatinine 0.76, Estim Creat Clear Calc 69.26, Est GFR (MDRD) Af Amer 103, Est GFR (MDRD) Non-Af 85, BUN/Creatinine Ratio 11.9, Glucose 101, Calcium 8.3 L, Total Bilirubin 0.40, AST 23, ALT 46, Alkaline Phosphatase 63, Total Protein 6.1 L, Albumin 2.8 L, Globulin 3.3, Albumin/Globulin Ratio 0.8 L Current Medications Acetaminophen (Tylenol) 650 mg PO Q6H PRN PRN PRN Reason: Mild Pain (1-3)/Temp > 100.7 F Last Admin: 12/25/18 17:43 Dose: 650 mg Documented by: Calcium Carbonate (Os-Kailash 500) 500 mg PO DAILY@0800 [facility] Last Admin: 12/26/18 07:44 Dose: 500 mg Documented by: Dextrose (D50w Syringe) 0 gm IV X1 PRN; Protocol PRN Reason: Hypoglycemia Glucagon () 1 mg IM .X1 PRN PRN Reason: Hypoglycemia Heparin Sodium (Porcine) (Heparin Na) 5,000 unit SC Q8 [facility] Last Admin: 12/26/18 05:01 Dose: 5,000 unit Documented by: Meropenem 1 gm/ Sodium (Chloride) 120 mls @ 33 mls/hr IV Q8 [facility] Last Admin: 12/26/18 05:02 Dose: 33 mls/hr Documented by: Ibuprofen (Motrin) 600 mg PO Q6H PRN PRN PRN Reason: fever, pain Last Admin: 12/25/18 22:49 Dose: 600 mg Documented by: Levothyroxine Sodium (Synthroid) 50 mcg PO DAILY@0600 [facility] Last Admin: 12/26/18 05:02 Dose: 50 mcg Documented by: Losartan Potassium (Cozaar) 25 mg PO DAILY [facility] Nutritional Formula (Lactose Free) (Ensure Enlive) 120 ml PO 4X/DAY [facility] Ondansetron HCl (Zofran) 4 mg IV Q8H PRN PRN PRN Reason: NAUSEA/VOMITING Last Admin: 12/25/18 17:44 Dose: 4 mg Documented by: Pantoprazole Sodium (Protonix) 40 mg PO DAILY [facility] Sodium Chloride () 5 - 15 ml IV UD PRN PRN Reason: SALINE FLUSH Last Admin: 12/25/18 17:44 Dose: 10 ml Documented by: Medical Necessity - Tobacco Use Smoking Status: Never smoker Tobacco Use: Non-smoker Assessment/Plan All Active Problems Family history of colon cancer in mother (Acute) Choking sensation (Acute) Atypical chest pain (Acute) Neutropenia (Acute) Breast cancer (Acute) Hypokalemia (Acute) Fever and neutropenia (Acute) 53 year old F with past medical history of breast cancer status post bilateral mastectomy, follows with oncology in the [facility] who comes in with complaints of fever and chills. 1. Neutropenic fever, no specific source of infection found , patient on chemotherapy for breast CA, WBC count is 3.5, absolute neutrophil count is improving Appreciate oncology consult, continue with neutropenic isolations/precautions, Meropenem IV, repeat labs in am 2. Hypokalemia, resolved 3. Hypothyroidism, on levothyroxine 4. Hypertension, controlled, on Losartan, will continue to monitor 5. Breast CA s/p bilateral mastectomies, on chemotherapy, following with oncology in the outpatient 6. DVT PPx- Heparin SC Code Visit Inpatient E&M: 50803 Subs Hosp L2
[2018-12-26] MEDS: Pantoprazole Sodium 40 MG Tablet PO (10:59)
[2018-12-26] MEDS: Losartan Potassium 25 MG Tablet PO (10:59)
--- NOTE | 2018-12-26 11:20 | CASEMGMT ---
RN CM Assessment Presentation: Neutropenic fever Intro role of CM and purpose of RN CM assessment to patient in room. Pt is awake, alert and able to participate in assessment. Demographics, PCP and Pharmacy verified. Pt denies any dc needs and plans to return home with family support. States and daughter are supportive. Pt verbalized concern re: emotioal impact of cancer treatment on her family. RN CM encouraged her to discuss and pt voiced concern that her hair is beginning to fall out after chemo treatment and she feels her will have a difficult time with this. RN ROBERT inquired if there was someone close to her , i.e. pastoral care or friend who he could talk to if needed. 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 Pt has positive outlook re: chemo as she states it is more preventative per her physician @ [facility]. RN ROBERT offered emotional support. Pt states I have to keep moving forward. PCP: GERA Hodges Specialists: [facility] oncologist, Dr. Goldberg seeing pt here. Preferred Pharmacy: [facility] Pharmacy [place], [place] Insurance: [facility] Prescription Benefit: yes LNOK: , Will Ponce and daughter, Honey Ponce Living Arrangements: Lives independently with her Transportation: drives, or family can assist. DME: none HHC: none Patient DC goals: Home on dc. DC PLAN: Home, no needs identified. Pt will f/u with her [facility] physician for continued tx on dc. Orquidea BESTN RN ACM
[2018-12-26 15:39] VITALS: BP 154/74; PULSE 98; RESP 16; TEMP 37.3; O2SAT 98
[2018-12-26] MEDS: Ondansetron 4 MG/2 ML Vial IV (15:46)
[2018-12-26] MEDS: Ibuprofen 600 MG Tablet PO (15:46)
[2018-12-26] MEDS: 0.9% NaCl Peripheral Flush Adult/Peds IV (15:47)
[2018-12-26 20:40] VITALS: BP 144/82; PULSE 89; RESP 16; TEMP 37.2; O2SAT 97
[2018-12-27 03:35] VITALS: BP 136/84; PULSE 82; RESP 16; TEMP 36.9; O2SAT 98
[2018-12-27] MEDS: Levothyroxine 50 MCG Tablet PO (05:59)
[2018-12-27] MEDS: Heparin Injection (Vial) 5,000 UNIT/ML VIAL 5000 UNIT SC (06:00)
[2018-12-27 07:40] LABS: Anion Gap 11 (5-15); BUN 8 mg/dL (7-18); BUN/Creat Ratio 10.3 RATIO (10-20); Calcium,Total 8.7 mg/dL (8.5-10.1); Chloride 108 mmol/L (98-107); Creatinine, Serum 0.78 mg/dL (0.55-1.02); EST Glomerular Filtration Rate 83 mL/min (>60); Est Glom Filt Rate - Afr Amer 101 mL/min (>60); Estimated Creatinine Clearance 67.49 ml/min; Glucose 100 mg/dL (74-106); Potassium 3.8 mmol/L (3.5-5.1); Sodium Level 143 mmol/L (136-145)
[2018-12-27] MEDS: Calcium (Elemental) 500 MG Tablet PO (08:12)
[2018-12-27 09:48] LABS: Hematocrit 32.9 % (37-47); Hemoglobin 10.7 g/dl (12.0-15.0); Mean Corp Hgb Conc 32.5 g/gl (32-36); Mean Corpuscular Hgb 27.9 pg (27.0-32.0); Mean Corpuscular Volume 85.9 fL (81-99); Mean Platelet Vol. 10.4 fl (6.2-12.0); Platelet Count 302 K/mm3 (150-450); RBC Distribution Width CV 12.8 % (11.6-14.6); RBC Distribution Width SD 40.1 fl (35.1-43.9); Red Blood Count 3.83 M/mm3 (4.2-5.4); White Blood Count 6.6 K/mm3 (4.4-11.0)
[2018-12-27 09:50] LABS: Differential Indicated MANUAL DIFF; POSITIVE COUNT YES; POSITIVE DIFFERENTIAL NO; POSITIVE MORPHOLOGY YES
[2018-12-27 10:16] VITALS: BP 144/73; PULSE 96; RESP 18; TEMP 37.1; O2SAT 100
[2018-12-27] MEDS: Pantoprazole Sodium 40 MG Tablet PO (10:26)
[2018-12-27] MEDS: Ondansetron 4 MG/2 ML Vial IV (10:26)
[2018-12-27] MEDS: Ibuprofen 600 MG Tablet PO (10:26)
[2018-12-27] MEDS: Losartan Potassium 25 MG Tablet PO (10:26)
[2018-12-27] MEDS: 0.9% NaCl Peripheral Flush Adult/Peds IV ×2 (10:29→14:39)
[2018-12-27 10:37] LABS: Basophil 1 % (0-1); Eosinophil 2 % (0-5); Lymphocyte 26 % (19-41); Metamyelocyte 4 % (0-1); Monocyte 28 % (0-10); Myelocyte 4 (0-0); Neutrophil-Band 6 % (0-5); Neutrophil-Segmented 27 % (47-70); Plasma Cell 1 %; Platelet Estimate ADEQUATE (ADEQ); Promyelocyte 1 (0-0); Red Cell Morphology NORM C+C NORMAL (NORM C&C); Total Cells Counted 100 (MANUAL DIFF)
[2018-12-27 10:39] LABS: Absolute Neutrophil Count 2.2 X10^3/uL (2.0-7.7)
[2018-12-27 10:40] LABS: Absolute Lymphocyte Count 1.72 X10^3/ul (0.83-4.51); Lymphocyte # 1.72 X10^3/ul (4.0)
--- NOTE | 2018-12-27 11:32 | EKG12_ITS ---
Test Reason : MONITOR QT INTERVAL Blood Pressure : / mmHG Vent. Rate : 091 BPM Atrial Rate : 091 BPM P-R Int : 128 ms QRS Dur : 080 ms QT Int : 362 ms P-R-T Axes : 057 089 016 degrees QTc Int : 445 ms Normal sinus rhythm Normal ECG When compared with ECG of 18-AUG-2018 08:20, Nonspecific T wave abnormality now evident in Inferior leads Nonspecific T wave abnormality now evident in Lateral leads Confirmed by JENA YOUNG, MARY ([id number]), content editor FREDDY GALAVIZ ([id number]) on 12/29/2018 11:07:10 AM Referred By: MARIO Confirmed By:DOROTHEA BELLA MD
--- NOTE | 2018-12-27 11:33 | DCINST_ITS ---
- Discharge Diagnoses Current Active Problems: Current Active and Chronic Problems Neutropenia (Acute) Breast cancer (Acute) Hypokalemia (Acute) Hypertension (Chronic) Hypothyroidism (Chronic) Fever and neutropenia (Acute) Reason(s) for Visit for Discharge Instructions: Fever You will use the following diet at home:: Regular Your food should be the consistency of: Regular Your liquids should be the consistency of: Regular/Thin Discharge Activity: Return to Normal Activity Additional Instructions: Complete your antibiotics. Continue to keep yourself hydrated. Follow-up with your primary oncologist as well as Dr. Ballesteros as scheduled. Follow-up with your primary care doctor within 1 to 2 weeks. Allergies/Adverse Reactions: Allergies amoxicillin [From Augmentin] Adverse Reaction (Verified 12/25/18 08:21) Nausea clavulanic acid [From Augmentin] Adverse Reaction (Verified 12/25/18 08:21) Nausea Medications to take at Discharge Levothyroxine Sodium [Synthroid] 50 mcg PO DAILY 12/21/17 Losartan Potassium [Cozaar] 25 mg PO DAILY 08/15/18 Omeprazole 40 mg PO DAILY 08/15/18 Calcium (Elemental) [Os-Kailash 500] 500 mg PO DAILY@0800 12/25/18 Ergocalciferol [Vitamin D] 50,000 unit PO Q7D 12/25/18 Levofloxacin [Levaquin] 750 mg PO DAILY #5 tab 12/27/18 The following prescriptions were given: Levofloxacin [Levaquin] 750 mg PO DAILY #5 tab Transmission Status: Pending to [facility]/pharmacy #[id number] Primary Care Physician: Cat Alanis PA-C [Primary Care Provider] - Please follow up with your Primary Care Physician in: within 1-2 weeks Test Results: Test results from this visit will be discussed in further detail at your follow- up appointment, if applicable. When: Your oncologist as scheduled Please Follow Up With: Kate Mcelroy MD When: as scheduled Proposed Discharge Date: 12/27/18
--- NOTE | 2018-12-27 11:34 | DS.PCM_ITS ---
Discharge Date and Diagnosis - Problem List Patient Problems: Active and Suspected Problems Neutropenia (Acute) Breast cancer (Acute) Hypokalemia (Acute) Fever and neutropenia (Acute) Date of Admission: 12/25/18 Date of Discharge: 12/27/18 - Primary Discharge Diagnosis Active and Suspected Problems Neutropenic fever Hypokalemia - Secondary Discharge Diagnosis Chronic Problems Anxiety disorder (Chronic) Hypertension (Chronic) Hypothyroidism (Chronic) Hospital Course and Treatment Imaging Results: Microbiology Clinical Impression(s) from Imaging Studies Chest X-Ray 12/25/18 09:01 IMPRESSION: No acute cardiopulmonary process. Electronically Signed: David Olivo MD at 10:52 EDT Tel , Service support , Oncology Operations: None Procedures: None Summary of Care Provided: 53 year old F with past medical history of breast cancer status post bilateral mastectomies who follows with oncology in the [facility] comes in with complaints of fever and chills. She had a temperature of 101.3F at home. She was going for her routine follow-up with general surgery and had complaints of feeling of unwell as well as recent respiratory symptoms. Her temperature again was 101.3F in the surgeon's office. She was recommended to come to the emergency department. Her WBC count was 3.5, absolute neutrophil count was 0. Her chest x-ray was unremarkable. UA showed pyuria but patient was asymptomatic. She was admitted to the medical floor, put in reverse isolation, started on IV meropenem, IV fluids. Her white cell count improved to 400 and next day and eventually to 2.2. Oncology was consulted and agreed to symptomatic management of the patient. Patient also had hypokalemia that was replaced, resolved on recheck. He was discharged home on a 5-day course of Levaquin. She will follow-up with her primary oncologist as well as her primary care doctor and her general surgeon. Patient Problems: Active and Suspected Problems Neutropenia (Acute) Breast cancer (Acute) Hypokalemia (Acute) Fever and neutropenia (Acute) Subjective: On the day of discharge, patient was seen and examined. She felt improved. Complained of diarrhea, loose, 4 times. Denied any fever or chills. No abdominal infarct. No melena or hematochezia. - Physical Exam General: Alert, Oriented x3, Cooperative, No apparent distress HEENT: Atraumatic, PERRLA, EOMI, Normocephalic Oral: Moist Mucosa Neck: Supple Lungs: Clear to auscultation, Normal air movement Cardiovascular: Regular rate, Regular Rhythm, Normal S1, Normal S2, No murmurs Abdomen: Bowel Sounds Present, Soft, Non Tender, Non-Distended, No Hepato- splenomegaly Extremities: No edema Skin: No rashes, No breakdown Musculoskeletal: No Tenderness to Palpation of Joints or Extremities Lymphatic: No Cervical, Supraclavicular, or Inguinal Adenopathy Neurological: Cranial nerves II-XII grossly intact, Neuro grossly intact Psych/Mental Status: Normal Affect, Appropriate Vital Signs Temp Pulse Resp BP Pulse Ox 98.7 F 96 18 144/73 H 100 12/27/18 10:16 12/27/18 10:16 12/27/18 10:16 12/27/18 10:16 12/27/18 10:16 Oxygen Delivery Method Room Air Weight: 69.4 kg Body Mass Index (BMI) 28.0 Intake and Output for Last 24 Hours 12/25/18 12/26/18 12/27/18 23:59 23:59 23:59 Intake Total 1053 / 1053 2837 / 2837 362 / 362 Output Total 2200 / 2200 Balance 1053 / 1053 637 / 637 362 / 362 Microbiology Past 72 Hours 12/25/18 09:05 Urine Culture - Final Urine, Clean Catch Presumptive E. coli GPC Poss Enterococcus sp Mixed Gram Positive Organisms 12/25/18 10:15 Blood Culture - Preliminary Blood Culture (Wb) - Left Hand No growth in 48 hours. 12/25/18 09:05 Blood Culture - Preliminary Blood Culture (Wb) #2 - Left Forearm No growth in 48 hours. Laboratory Tests Past 24 Hrs 12/27/18 12/27/18 07:14 07:20 WBC 6.6 RBC 3.83 L Hgb 10.7 L Hct 32.9 L MCV 85.9 MCH 27.9 MCHC 32.5 RDW 12.8 RDW Differential 40.1 Plt Count 302 MPV 10.4 Neut % (Auto) Not Reportable Absolute Neuts (auto) 2.2 Absolute Lymphs (auto) 1.72 Total Counted 100 Neutrophils % (Manual) 27 L Band Neutrophils % 6 H Lymphocytes % (Manual) 26 Monocytes % (Manual) 28 H Eosinophils % (Manual) 2 Basophils % (Manual) 1 Metamyelocytes % 4 H Myelocytes % 4 H Promyelocytes % 1 H Plasma Cell % (Manual) 1 Diff Path Review May foll Platelet Estimate ADEQUATE RBC Morphology NORM C+C Sodium 143 Potassium 3.8 Chloride 108 H Carbon Dioxide 24.0 Anion Gap 11 BUN 8 Creatinine 0.78 Estim Creat Clear Calc 67.49 Est GFR (MDRD) Af Amer 101 Est GFR (MDRD) Non-Af 83 BUN/Creatinine Ratio 10.3 Glucose 100 Calcium 8.7 Discharge Diet: No Restrictions Discharge Activity: Return to Normal Activity Home Medications: Medications to take at Discharge Levothyroxine Sodium [Synthroid] 50 mcg PO DAILY 12/21/17 Losartan Potassium [Cozaar] 25 mg PO DAILY 08/15/18 Omeprazole 40 mg PO DAILY 08/15/18 Calcium (Elemental) [Os-Kailash 500] 500 mg PO DAILY@0800 12/25/18 Ergocalciferol [Vitamin D] 50,000 unit PO Q7D 12/25/18 Levofloxacin [Levaquin] 750 mg PO DAILY #5 tab 12/27/18 Following Prescrptions Were Given to Patient: Levofloxacin [Levaquin] 750 mg PO DAILY #5 tab Transmission Status: Received by [facility]/pharmacy #[id number] Primary Care Physician: Cat Alanis PA-C [Primary Care Provider] - Please follow up with your Primary Care Physician in: within 1-2 weeks When: Your oncologist as scheduled Please Follow Up With: Kate Mcelroy MD When: as scheduled Disposition: Home Minutes spent on discharge:: 40 Patient Condition:: Stable Medical Necessity - Tobacco Use Smoking Status: Never smoker Tobacco Use: Non-smoker Meaningful Use Info Meaningful Use Diagnoses (Choose all that apply): None applicable Code Visit Inpatient E&M: 80434 Disch Hosp
--- NOTE | 2018-12-27 12:30 | NURSING ---
Called [facility] to notify of order for EKG- verbalized understanding and states that they just saw order.
[2018-12-27 14:24] LABS: Pathologist Review Reviewed
[2018-12-27 14:30] VITALS: BP 137/77; PULSE 88; RESP 18; TEMP 37.1; O2SAT 97
[2018-12-27 18:40] VITALS: TEMP 37.1
[2018-12-28 10:30] LABS: Pathologist Review Reviewed
--- NOTE | 2018-12-28 14:25 | CASEMGMT ---
CHRISTIN CM DC PHONE CALL DC DATE: 12/28/18 DC Disposition: Home LACE/STRATA: 04/05 Attempted call to listed phone number. No answer, and no machine tile picker to leave message. Orquidea MAGALLANES RN ACM
== END 2018-12-27 18:40 | disposition home or self-care (01) | DRG 810 ==
LOC: ED 08:52 → MS3 11:06
PROVIDERS: Admitting Provider Internal Medicine; Emergency Provider Emergency Medicine; Family Provider Family Medicine; PCP Family Medicine; Visit Provider Internal Medicine
DX: D70.1 Agranulocytosis secondary to cancer chemotherapy (principal); T45.1X5A Adverse effect of antineoplastic and immunosuppressive drugs, initial encounter; R50.81 Fever presenting with conditions classified elsewhere; E87.6 Hypokalemia; E03.9 Hypothyroidism, unspecified; I10 Essential (primary) hypertension; C50.911 Malignant neoplasm of unspecified site of right female breast; Z17.0 Estrogen receptor positive status [ER+]; Z90.13 Acquired absence of bilateral breasts and nipples; F41.9 Anxiety disorder, unspecified
CPT/HCPCS: 36415; 71046; 80048; 80053; 81001; 83605; 85025; 87040; 87086; 87088; 87493; 87506; 93005; 97802; 99284; J2185; J7030; A4216; J2405

== ENCOUNTER 2019-01-10 22:02 | Inpatient (IN) | payer OTHER, SELFPAY ==
[2018-12-25 11:29] VITALS: BMI 28.0
[2019-01-10 22:03] VITALS: BP 149/62; PULSE 118; RESP 16; TEMP 37.2; O2SAT 97; BMI 35.2
[2019-01-10 22:07] VITALS: BP 149/62; PULSE 118; RESP 16; TEMP 37.2; O2SAT 98
--- NOTE | 2019-01-10 22:17 | RAD_ITS ---
HISTORY:PT ARRIVES TO ED WITH A FEVER OF 100.9. SHE IS ON CHEMO. LAST TX 01/05/19, BREAST CA PT ARRIVES TO ED WITH A FEVER OF 100.9. SHE IS ON CHEMO. LAST TX 01/05/19, BREAST CA EXAM: XR Chest 1 View: COMPARISON: December 25, 2018 FINDINGS: # of images incl. paperwork: 1 LINES/DEVICES: None. LUNGS: Radiographically clear. No consolidation, edema or effusion. No pneumothorax. MEDIASTINUM AND CARDIOVASCULAR STRUCTURES: Cardiac silhouette not enlarged. BONES AND SOFT TISSUES: Unremarkable. RAD/Chest 1 View (Portable) IMPRESSION: No radiographic evidence of acute cardiopulmonary disease. at 2227 Reported and signed by: Veronica Amaya DO Electronically Signed: Veronica Amaya DO at 22:26 EDT Tel , Service support ,
[2019-01-10 22:59] VITALS: BP 147/78; PULSE 115; RESP 15; O2SAT 96
[2019-01-10 23:04] LABS: Bacteria 0 SEEN /hpf (None Seen); Mucous, Urine 0 SEEN /hpf (<or=2+); Red Blood Cells-Urine 0 SEEN /hpf (0-5); Squamous Epithelial Cells - UA 0 SEEN /hpf (5-10); White Blood Cells 0 SEEN /hpf (0-5)
[2019-01-10 23:12] LABS: Absolute Lymphocyte Count 1.21 X10^3/ul (0.83-4.51); Absolute Neutrophil Count 0.5 X10^3/uL (2.0-7.7); Basophil# 0.08 X10^3/uL; Eosinophil# 0.14 X10^3/uL; Eosinophils% 6.9 % (0-5); Hemoglobin 10.8 g/dl (12.0-15.0); Lymphocyte # 1.21 X10^3/ul (4.0); Lymphocyte % 59.9 % (19-41); Mean Corp Hgb Conc 32.7 g/gl (32-36); Mean Corpuscular Hgb 28.3 pg (27.0-32.0); Mean Corpuscular Volume 86.4 fL (81-99); Mean Platelet Vol. 11.6 fl (6.2-12.0); Monocyte# 0.11 X10^3/uL; Monocyte% 5.4 % (0-10); Neutrophil # 0.48 X10^3/uL (2.7-7.7); Neutrophil % 23.8 % (47-70); Platelet Count 177 K/mm3 (150-450); RBC Distribution Width CV 13.6 % (11.6-14.6); RBC Distribution Width SD 42.5 fl (35.1-43.9); Red Blood Count 3.82 M/mm3 (4.2-5.4)
[2019-01-10 23:13] VITALS: BP 137/77; PULSE 109; RESP 16; TEMP 37.9; O2SAT 96
[2019-01-10 23:13] LABS: Glucose, Dipstick Normal (Normal); Ketone-Dipstick Negative (Negative); Leukocyte Esterase-Dipstick Negative /ul (Negative); Nitrite-Dipstick Negative (Negative); Occult Blood-Urine Negative /ul (Negative); Protein-Dipstick 15 mg/dl (Negative); Urine Bilirubin Dipstick Negative (Negative); Urine Urobilinogen Normal (Normal)
[2019-01-10 23:17] LABS: Color, Urine Yellow (Yellow); Urine Clarity Clear (Clear)
[2019-01-10 23:27] LABS: Differential Indicated SCAN CRITERIA MET; POSITIVE COUNT NO; POSITIVE DIFFERENTIAL YES; POSITIVE MORPHOLOGY NO
[2019-01-10 23:35] LABS: Anion Gap 6 (5-15); BUN 12 mg/dL (7-18); BUN/Creat Ratio 14.5 RATIO (10-20); Calcium,Total 8.6 mg/dL (8.5-10.1); Chloride 105 mmol/L (98-107); Creatinine, Serum 0.83 mg/dL (0.55-1.02); Differential Comment SCANNED; EST Glomerular Filtration Rate 77 mL/min (>60); Est Glom Filt Rate - Afr Amer 93 mL/min (>60); Estimated Creatinine Clearance 66.33 ml/min; Glucose 114 mg/dL (74-106); Potassium 3.7 mmol/L (3.5-5.1); Sodium Level 139 mmol/L (136-145)
--- NOTE | 2019-01-11 00:04 | ED.DCSUM_ITS ---
- ER Visit Summary Date of Service: 01/11/19 Chief Complaint: Fever History of Present Illness: The patient is a 53 F presenting with fever. Patient has a history of breast cancer. She is on chemotherapy, her last chemotherapy was 01/05/2019. This is her second treatment of this chemotherapy. After the first treatment she did develop neutropenic fever requiring admission. She was given Neulasta on Tuesday. She states on Tuesday she developed chills and fever. She felt well on Tuesday and again developed chills and fever today. She has mild cough. She has had mild diarrhea. Denies other complaints. Physical Examination: Vitals are stable. Temperature 100.3. Alert no acute distress. HEENT exam is unremarkable. Neck is supple. No meningismus Lungs are clear and equal bilaterally. Heart is regular and tachycardic Abdomen is soft nontender nondistended. Extremities are unremarkable. Skin is warm and dry. No focal neurologic deficit. Remainder of exam is unremarkable. Emergency Department Course and Treatment: Her [facility] oncologist called in prior to her arrival. They request Zosyn on her arrival. Blood cultures and urine cultures were sent. Patient was given Zosyn IV. CBC shows a white count of 2.0, ANC 0.5. Chemistries unremarkable. Urinalysis unremarkable. Chest x-ray shows no acute process. Discussed with the hospitalist for admission. Disposition: Admission Impression: Neutropenic fever This note was generated with [employer] dictation software. It may contain incorrect words, spelling, and punctuation that were not noted in review of the chart prior to signing ED Disposition - Plan for ED Patient: Referrals: Cat Alanis PA-C [Primary Care Provider] -
--- NOTE | 2019-01-11 00:25 | PCM.HP.STD ---
Problem List (1) Anxiety disorder Status: Chronic Qualifiers: Anxiety disorder type: unspecified anxiety disorder Qualified Code(s): F41.9 - Anxiety disorder, unspecified (2) Hypertension Status: Chronic Qualifiers: Hypertension type: essential hypertension Qualified Code(s): I10 - Essential (primary) hypertension (3) Hypothyroidism Status: Chronic Qualifiers: Hypothyroidism type: unspecified Qualified Code(s): E03.9 - Hypothyroidism, unspecified (4) Fever and neutropenia Status: Acute History of Present Illness Date of Admission: 01/11/19 Chief Complaint: Fever - 3 days The patient is a 53 year old F with past medical history of breast cancer status post bilateral mastectomy, on chemotherapy, follows with her oncologist in the [facility]. Patient underwent her second chemotherapy on 01/05/19. She was given Neulasta. She comes in with a 3-day history of fever and upper respiratory symptoms. He has a cough but is nonproductive. Denied any new rash, no abdominal pain. She has some loose stools that resolved with Imodium that she was given. Vitals in the ED show temperature of 98.9F heart rate 118, blood pressure 149/62, respiratory 16, SPO2 is 97% on room air. She later developed low-grade fever with T-max of 100.3F. Her WBC was 2.0, hemoglobin 10.8, platelet 117, BMP is unremarkable, UA is unremarkable. Chest x-ray shows no acute evidence of cardiopulmonary disease. Blood cultures x2 were taken and pending. Past Medical History Past Medical History (Chronic Problems): Chronic Problems Anxiety disorder (Chronic) Hypertension (Chronic) Hypothyroidism (Chronic) Allergies amoxicillin [From Augmentin] Adverse Reaction (Verified 01/10/19 22:07) Nausea clavulanic acid [From Augmentin] Adverse Reaction (Verified 01/10/19 22:07) Nausea Home Medications: Ambulatory Orders Medication Instructions Recorded Levothyroxine Sodium [Synthroid] 50 mcg PO DAILY 12/21/17 Losartan Potassium [Cozaar] 25 mg PO DAILY 08/15/18 Omeprazole 40 mg PO DAILY 08/15/18 Calcium (Elemental) [Os-Kailash 500] 500 mg PO DAILY@0800 12/25/18 Ergocalciferol [Vitamin D] 50,000 unit PO Q7D 12/25/18 Ondansetron [Zofran] 8 mg PO Q8H 01/11/19 Prochlorperazine Maleate 10 mg PO Q6H PRN 01/11/19 [Compazine] Surgical History: mastectomy - bilateral Psychiatric History: Anxiety LITIGATION CLAIM REPRESENTATIVE History: No pertinent LITIGATION CLAIM REPRESENTATIVE history Lives: With Family Smoking Status: Never smoker Alcohol: None Drugs: None - *Family History Maternal History Items: Cancer - Cervical and colon CA Paternal History Items: Heart Disease Review of Systems Constitutional: Reports: Anorexia, Malaise, Weakness, Fatigue. Denies: Chills, Fever, Weight Change Eyes: Denies: Blurred vision, Cataracts, Conjunctivae Inflammation, Pain, Redness, Vision Change HEENT: Reports: Nasal Congestion. Denies: Difficulty Hearing, Difficulty Swallowing, Head Aches, Hearing Changes, Sinus Congestion, Sinus Drainage Cardiovascular: Denies: Chest Pain, Claudication, Orthopnea, Palpitations, Syncope Respiratory: Reports: Cough. Denies: Shortness of breath at rest, Shortness of breath upon exertion, Sputum production Gastrointestinal: Denies: Abdominal Pain, Constipation, Nausea, Vomiting Genitourinary: Denies: Dysuria, Frequency, Incontinence Gynecological: Denies: Breast symptoms, Excessively long or heavy periods Musculoskeletal: Denies: Joint Pain, Joint stiffness, Joint swelling, Joint Tenderness Skin: Denies: Dryness, Rash, Wounds Neurological: Denies: Focal weakness, Headaches, Numbness, Tingling Psychiatric: Denies: Anxiety, Depression, Homicidal Ideations, Suicidal Ideations Endocrine: Denies: Polyuria Hematologic/ Lymphatic: Denies: Easy Bruising, Easy Bleeding VTE Information - Inpt Only VTE Present on Admission: No VTE Pharm Prophylaxis ordered?: Yes - Physical Exam General: Alert, Oriented x3, Cooperative, No apparent distress HEENT: Atraumatic, PERRLA, EOMI, Normocephalic Oral: Moist Mucosa Neck: Supple, No JVD, Negative Carotid Bruits Lungs: Clear to auscultation, Normal air movement Cardiovascular: Regular rate, Regular Rhythm, Normal S1, Normal S2, No murmurs Abdomen: Bowel Sounds Present, Soft, Non Tender, Non-Distended, No Hepato-splenomegaly Extremities: No edema Skin: No rashes, No breakdown Musculoskeletal: No Tenderness to Palpation of Joints or Extremities Lymphatic: No Cervical, Supraclavicular, or Inguinal Adenopathy Neurological: Cranial nerves II-XII grossly intact, Neuro grossly intact Psych/Mental Status: Normal Affect, Appropriate Vital Signs Temp Pulse Resp BP Pulse Ox 100.3 F H 109 H 16 137/77 H 96 01/10/19 23:13 01/10/19 23:13 01/10/19 23:13 01/10/19 23:13 01/10/19 23:13 Oxygen Delivery Method Room Air Weight: 90.2 kg Body Mass Index (BMI) 35.2 Laboratory Tests Past 24 Hrs 01/10/19 01/10/19 01/10/19 22:53 22:53 22:55 WBC 2.0 L RBC 3.82 L Hgb 10.8 L Hct 33.0 L MCV 86.4 MCH 28.3 MCHC 32.7 RDW 13.6 RDW Differential 42.5 Plt Count 177 MPV 11.6 Immature Gran % (Auto) 0.000 Neut % (Auto) 23.8 L Lymph % (Auto) 59.9 H [place] % (Auto) 5.4 Eos % (Auto) 6.9 H Baso % (Auto) 4.0 H Absolute Neuts (auto) 0.5 L Absolute Lymphs (auto) 1.21 Total Counted Not Reportable Differential Comment SCANNED Sodium 139 Potassium 3.7 Chloride 105 Carbon Dioxide 28.0 Anion Gap 6 BUN 12 Creatinine 0.83 Estim Creat Clear Calc 66.33 Est GFR (MDRD) Af Amer 93 Est GFR (MDRD) Non-Af 77 BUN/Creatinine Ratio 14.5 Glucose 114 H Calcium 8.6 Urine Color Yellow Urine Clarity Clear Urine pH 6.0 Ur Specific [place] 1.020 Urine Protein 15 H Urine Glucose (UA) Normal Urine Ketones Negative Urine Occult Blood Negative Urine Nitrite Negative Urine Bilirubin Negative Urine Urobilinogen Normal Ur Leukocyte Esterase Negative Urine RBC 0 SEEN Urine WBC 0 SEEN Ur Squamous Epith Cells 0 SEEN Urine Bacteria 0 SEEN Urine Mucus 0 SEEN Assessment/Plan All Active Problems Family history of colon cancer in mother (Acute) Choking sensation (Acute) Atypical chest pain (Acute) Neutropenia (Acute) Breast cancer (Acute) Hypokalemia (Acute) Fever and neutropenia (Acute) 53 year old F with past medical history of breast cancer status post bilateral mastectomy, on chemotherapy, last had chemotherapy 01/05/19 comes in with fever and chills ongoing for 3 days. 1. Neutropenic fever, in an known breast CA patient on chemotherapy, recent chemo, received Neulasta after chemo WBC count is 2.0, ANC is 500. No exact etiology, chest x-ray is negative, UA is unremarkable, blood cultures are pending [facility], gentle IV fluids, IV meropenem, oncology consult, Repeat blood work in a.m. 2. Hypertension, controlled, continue home regimen -losartan 3. Hypothyroidism, on levothyroxine, continue same 4. DVT PPx- Lovenox SC Code Visit Inpatient E&M: 61214 Init Hosp L3
[2019-01-11 00:31] VITALS: BP 136/79; PULSE 104; RESP 18; TEMP 37.6; O2SAT 95
[2019-01-11 00:56] VITALS: BMI 35.2
[2019-01-11 01:05] VITALS: BP 140/63; PULSE 97; RESP 16; TEMP 37.6; O2SAT 97
[2019-01-11 01:19] VITALS: BMI 35.2
[2019-01-11] MEDS: 0.9% Normal Saline 1,000 ML 100 ML IV ×2 (01:41→12:06)
[2019-01-11] MEDS: 0.9% NaCl Peripheral Flush Adult/Peds IV (06:17)
[2019-01-11] MEDS: Enoxaparin 40 MG/0.4 ML Syringe SC (06:17)
[2019-01-11 06:18] LABS: Absolute Lymphocyte Count 1.08 X10^3/ul (0.83-4.51); Absolute Neutrophil Count 0.2 X10^3/uL (2.0-7.7); Basophil# 0.07 X10^3/uL; Basophil% 3.8 % (0-1); Eosinophil# 0.14 X10^3/uL; Eosinophils% 7.5 % (0-5); Hematocrit 30.8 % (37-47); Lymphocyte # 1.08 X10^3/ul (4.0); Lymphocyte % 58.1 % (19-41); Mean Corp Hgb Conc 32.5 g/gl (32-36); Mean Corpuscular Hgb 27.9 pg (27.0-32.0); Mean Platelet Vol. 11.3 fl (6.2-12.0); Monocyte# 0.38 X10^3/uL; Monocyte% 20.4 % (0-10); Neutrophil # 0.18 X10^3/uL (2.7-7.7); Neutrophil % 9.7 % (47-70); Platelet Count 165 K/mm3 (150-450); RBC Distribution Width CV 13.6 % (11.6-14.6); RBC Distribution Width SD 42.3 fl (35.1-43.9); Red Blood Count 3.58 M/mm3 (4.2-5.4); White Blood Count 1.9 K/mm3 (4.4-11.0)
[2019-01-11 06:19] VITALS: BP 133/64; PULSE 91; RESP 16; TEMP 36.7; O2SAT 97
[2019-01-11 06:19] LABS: Differential Indicated SCAN CRITERIA MET; POSITIVE COUNT NO; POSITIVE DIFFERENTIAL YES; POSITIVE MORPHOLOGY YES
[2019-01-11 06:29] LABS: ALB/GLOB Ratio 0.9 RATIO (0.9-2.4); AST(SGOT) 17 U/L (15-37); Alanine Aminotransfer ALT/SGPT 38 U/L (13-56); Alkaline Phosphatase 95 U/L (45-117); Anion Gap 8 (5-15); BUN 10 mg/dL (7-18); BUN/Creat Ratio 12.9 RATIO (10-20); Calcium,Total 8.4 mg/dL (8.5-10.1); Chloride 108 mmol/L (98-107); Creatinine, Serum 0.78 mg/dL (0.55-1.02); EST Glomerular Filtration Rate 83 mL/min (>60); Est Glom Filt Rate - Afr Amer 101 mL/min (>60); Estimated Creatinine Clearance 67.49 ml/min; Globulin 3.3 g/dL (2.2-4.2); Glucose 89 mg/dL (74-106); Potassium 3.7 mmol/L (3.5-5.1); Protein, Total 6.3 g/dL (6.4-8.2); Sodium Level 142 mmol/L (136-145)
[2019-01-11 06:58] LABS: Differential Comment SCANNED
[2019-01-11 09:27] VITALS: BP 107/56; PULSE 108; RESP 18; TEMP 36.7; O2SAT 98
--- NOTE | 2019-01-11 09:31 | NURSING ---
paged dr godoy for consult
[2019-01-11] MEDS: Pantoprazole Sodium 40 MG Tablet PO (10:38)
[2019-01-11] MEDS: Losartan Potassium 25 MG Tablet PO (10:38)
[2019-01-11] MEDS: Levothyroxine 50 MCG Tablet PO (10:38)
[2019-01-11] MEDS: Ibuprofen 400 MG Tablet PO ×2 (10:40→21:13)
--- NOTE | 2019-01-11 13:23 | CON.PCM_ITS ---
Consult Referring Physician: Dr. Kruse Subjective Chief Complaint: fever post chemo History of Present Illness: PATIENT IDENTIFICATION: Ms Ponce is a 53 year old postmenopausal woman with history of Stage IA (pT1cN0) right sided ER-positive, NH-positive, HER2-negative invasive ductal carcinoma diagnosed in 07/2018 s/p bilateral mastectomy/R SLNBx ? HISTORY OF PRESENT ILLNESS: 1. Patient reports that she was found to have a palpable mass in the right breast in Spring 2017. She has breast imaging at that time that revealed a cyst and FNA was negative for malignancy. 2. In late 2017 she felt like this mass was growing/changing shape so she was evaluated by her [employer]PERVISING [employer]. She has imaging which showed change in the area with a solid component 3. Biopsy?in 07/2018 which demonstrated IDC, grade 3, with foci suspicious for angiolymphatic invasion. ER-positive at 95%, NH positive at 80%, HER2-negative (IHC 0). 4. She underwent right MRM with SLNBx and left prophylactic MRM on 08/28/18 with pathology demonstrating a 2cm focus of IDC, grade 3, no axillary hanna involvement. 5. Oncotype Dx recurrence score of 16 equating to a 4% 9 year recurrence risk with endocrine therapy alone.?She was recommended to have endocrine therapy without chemotherapy based on this Oncotype score. 6. She was started on anastrozole in October 2018 and ?tolerated it well apart from increase in hot flashes. She had a DEXA scan prior to starting the medication which was normal. 7. She came to [facility] for second opinion on adjuvant treatment in November 2018 because of discomfort with omission of chemotherapy. We had a lengthy discussion regarding the discrepancy between clinical features and genomic risk assessment. Ultimately she elected to proceed with TC x 4 cycles prior to resuming endocrine therapy.? 8. Hospitalization 12/25/18 after visit with general surgery, during which she noted URI like symptoms and was found to be febrile to 100.6F. On admission, also found to be?neutropenic with an ANC of 0.00. Blood cultures were negative. WBC total count on 01/05/19 visit was 10.75 (ANC 7.37), here for chemotherapy. Will also get Neulasta today, and decided that if symptoms too severe after this treatment will discontinue and just go back on anastrazole ? Current therapy: 1) TC ? INTERVAL HISTORY:?Patient received cycle 2 of Taxotere/cyclophosphamide on 01/05. She received Neulasta via OnPro device as growth factor support. presented to the ED last night with neutropenic fever. Currently on broad-spectrum antibiotics with resolution of fever. Neutrophil count lower today than yesterda y. She has no complaints other than occasional headache. She's had no episode of cough or rash. No bladder symptoms. No unusual bleeding or unexplained bruising. Past Medical History: Chronic Problems Anxiety disorder (Chronic) Hypertension (Chronic) Hypothyroidism (Chronic) Past Medical/Surgical History: Past Medical History - Most Recent Inpatient Visit Past Medical History Start: 01/11/19 00:56 Text: Status: Complete Freq: ONCE Protocol: Document 01/11/19 01:19 GISELA (Rec: 01/11/19 01:25 [facility] [id number]) BMI Required to complete PMH What is Patient's BMI 35.2 Past Medical History Unable History Recalled Yes Query Text:Pt Unable/Family Not Present Neurologic Medical History Hx Stroke/TIA No Hx Dementia/Alzheimer's No Hx Parkinson's Disease No Hx Seizures No Hx Multiple Sclerosis No Hx Migraines No Cardiac Medical History VTE Present on Admission No Hx of Deep Vein Thrombosis/VTE/PE No Hx Hypertension Yes: ON MEDICATION, CONTROLLED Hx Chest Pain/Angina Yes: ADMITTED FOR CP IN 02/2018 Hx Heart Attack No Hx Cardiac Surgery/Stents/Etc. No Hx Heart Failure No Hx Pacemaker/AICD No Hx Irregular Heartbeat and/or Afib No Hx Anticoagulant Therapy No Query Text:(Coumadin, Aspirin, Plavix, Xarelto, etc.) Hx Pain in Legs when Walking/Leg Cramps No Respiratory Medical History Hx COPD No Hx Emphysema No Hx Smoking No Smoking Status Never smoker Hx Smoking Exposure Yes: Grandparents while a child Hx Tobacco Use in last 12 months No Hx of Pipe Smoking No Hx Sleep Apnea No CPAP No Do you snore loudly (louder than talking No or can be heard through closed doors)? Do you often feel tired/ fatigued/ No sleepy during daytime? Has anyone observed you stop breathing No during sleep? STOP Results Negative GI Medical History Hx Ulcer Yes: as child Hx Hepatitis No Hx Cirrhosis No Hx GI Bleed No Hx Unplanned Weight Loss No Genitourinary Medical History Indwelling Catheter in Place on Arrival/ No Admission Hx Renal Disease No Hx Dialysis No Musculoskeletal History Hx Arthritis No Hx Rheumatoid Arthritis No Endocrine Medical History Hx Diabetes No Hx Thyroid Disease Yes: on med Hematologic Medical History Hx of Blood Transfusion No Hx of Transfusion in last 3 Months No Ever experience any problems with No transfusion(s)? Hx of Preganancy in last 3 Months No Nurse Filling Out Transfusion & SROBERTSO Questions: Date: 01/11/19 Time: 01:24 Psycho/Social Medical History Hx Depression No Hx Anxiety Yes: NO MEDICATION Hx Behavior Disorder No Hx Alcohol Use No Hx Substance Use No Other Medical History Hx Blood Disorders No Hx Anemia Yes: A CHILD, resolved Hx Cancer Yes: BREAST CA-DOUBLE MASTECTOMY, LAST CHEMO August 28, 2018 Hx Drug Resistant Organism No Wound/Pressure Injury Present on Arrival No /Admission Query Text:If yes, chart assessment in Shift/Clinical Findings Central Line/PICC/VAD Present on Arrival No /Admission Antibiotics within last 7 days? No Risk for Readmission Number of Risk Factors 5 At Risk for Readmission Patient is At Risk For Readmission Patient is eligible for Call Back Y Paternal Family History: Heart Disease Maternal Family History: Cancer - Cervical and colon CA - Social History Lives: With Family Smoking Status: Never smoker Alcohol: None Drugs: None Allergies/Adverse Reactions: Allergy/AdvReac Type Severity Reaction Status Date / Time amoxicillin [From Augmentin] AdvReac Nausea Verified 01/10/19 22:07 clavulanic acid AdvReac Nausea Verified 01/10/19 22:07 [From Augmentin] Review of Systems Constitutional:: Reports: Fatigue, Fever Musculoskeletal:: Reports: Arthritis. Denies: Back pain, Myalgia, Arthralgia Vital Signs Height 1.6 m Weight: 90.1 kg Weight in Pounds 198.6 lbs Pulse Ox 98 Temperature 98.1 F Pulse Rate 108 Respiratory Rate 18 Blood Pressure 107/56 Blood Pressure Position Semi-Fowlers - Physical Exam General: Alert, Oriented x3 HEENT: Atraumatic Oropharynx:: Clear Neck:: Supple Cardiac:: Regular rhythm Lungs: Clear to auscultation Abdomen:: Non-tender Laboratory Data: Laboratory Tests 01/11/19 01/11/19 01/10/19 Range/Units 05:58 05:58 22:55 WBC 1.9 L (4.4-11.0) K/mm3 RBC 3.58 L (4.2-5.4) M/mm3 Hgb 10.0 L (12.0-15.0) g/dl Hct 30.8 L (37-47) % MCV 86.0 (81-99) fL MCH 27.9 (27.0-32.0) pg MCHC 32.5 (32-36) g/gl RDW 13.6 (11.6-14.6) % RDW Differential 42.3 (35.1-43.9) fl Plt Count 165 (150-450) K/mm3 MPV 11.3 (6.2-12.0) fl Immature Gran % (Auto) 0.500 (0.0-0.9) % Neut % (Auto) 9.7 L (47-70) % Lymph % (Auto) 58.1 H (19-41) % [place] % (Auto) 20.4 H (0-10) % Eos % (Auto) 7.5 H (0-5) % Baso % (Auto) 3.8 H (0-1) % Absolute Neuts (auto) 0.2 L (2.0-7.7) X10^3/uL Absolute Lymphs (auto) 1.08 (0.83-4.51) X10^3/ul Total Counted Not Reportable Differential Comment SCANNED Sodium 142 (136-145) mmol/L Potassium 3.7 (3.5-5.1) mmol/L Chloride 108 H (98-107) mmol/L Carbon Dioxide 26.0 (21.0-32.0) mmol/L Anion Gap 8 (5-15) BUN 10 (7-18) mg/dL Creatinine 0.78 (0.55-1.02) mg/dL Estim Creat Clear Calc 67.49 ml/min Est GFR (MDRD) Af Amer 101 (>60) mL/min Est GFR (MDRD) Non-Af 83 (>60) mL/min BUN/Creatinine Ratio 12.9 (10-20) RATIO Glucose 89 (74-106) mg/dL Calcium 8.4 L (8.5-10.1) mg/dL Total Bilirubin 0.50 (0.20-1.00) mg/dL AST 17 (15-37) U/L ALT 38 (13-56) U/L Alkaline Phosphatase 95 (45-117) U/L Total Protein 6.3 L (6.4-8.2) g/dL Albumin 3.0 L (3.2-5.0) g/dL Globulin 3.3 (2.2-4.2) g/dL Albumin/Globulin Ratio 0.9 (0.9-2.4) RATIO Urine Color Yellow (Yellow) Urine Clarity Clear (Clear) Urine pH 6.0 (5.0 - 8.0) Ur Specific [place] 1.020 (1.002-1.030) Urine Protein 15 H (Negative) mg/dl Urine Glucose (UA) Normal (Normal) mg/dl Urine Ketones Negative (Negative) mg/dl Urine Occult Blood Negative (Negative) /ul Urine Nitrite Negative (Negative) Urine Bilirubin Negative (Negative) mg/dL Urine Urobilinogen Normal (Normal) mg/dl Ur Leukocyte Esterase Negative (Negative) /ul Urine RBC 0 SEEN (0-5) /hpf Urine WBC 0 SEEN (0-5) /hpf Ur Squamous Epith Cells 0 SEEN (5-10) /hpf Urine Bacteria 0 SEEN (None Seen) /hpf Urine Mucus 0 SEEN (<or=2+) /hpf 01/10/19 01/10/19 Range/Units 22:53 22:53 WBC 2.0 L (4.4-11.0) K/mm3 RBC 3.82 L (4.2-5.4) M/mm3 Hgb 10.8 L (12.0-15.0) g/dl Hct 33.0 L (37-47) % MCV 86.4 (81-99) fL MCH 28.3 (27.0-32.0) pg MCHC 32.7 (32-36) g/gl RDW 13.6 (11.6-14.6) % RDW Differential 42.5 (35.1-43.9) fl Plt Count 177 (150-450) K/mm3 MPV 11.6 (6.2-12.0) fl Immature Gran % (Auto) 0.000 (0.0-0.9) % Neut % (Auto) 23.8 L (47-70) % Lymph % (Auto) 59.9 H (19-41) % [place] % (Auto) 5.4 (0-10) % Eos % (Auto) 6.9 H (0-5) % Baso % (Auto) 4.0 H (0-1) % Absolute Neuts (auto) 0.5 L (2.0-7.7) X10^3/uL Absolute Lymphs (auto) 1.21 (0.83-4.51) X10^3/ul Total Counted Not Reportable Differential Comment SCANNED Sodium 139 (136-145) mmol/L Potassium 3.7 (3.5-5.1) mmol/L Chloride 105 (98-107) mmol/L Carbon Dioxide 28.0 (21.0-32.0) mmol/L Anion Gap 6 (5-15) BUN 12 (7-18) mg/dL Creatinine 0.83 (0.55-1.02) mg/dL Estim Creat Clear Calc 66.33 ml/min Est GFR (MDRD) Af Amer 93 (>60) mL/min Est GFR (MDRD) Non-Af 77 (>60) mL/min BUN/Creatinine Ratio 14.5 (10-20) RATIO Glucose 114 H (74-106) mg/dL Calcium 8.6 (8.5-10.1) mg/dL Total Bilirubin (0.20-1.00) mg/dL AST (15-37) U/L ALT (13-56) U/L Alkaline Phosphatase (45-117) U/L Total Protein (6.4-8.2) g/dL Albumin (3.2-5.0) g/dL Globulin (2.2-4.2) g/dL Albumin/Globulin Ratio (0.9-2.4) RATIO Urine Color (Yellow) Urine Clarity (Clear) Urine pH (5.0 - 8.0) Ur Specific [place] (1.002-1.030) Urine Protein (Negative) mg/dl Urine Glucose (UA) (Normal) mg/dl Urine Ketones (Negative) mg/dl Urine Occult Blood (Negative) /ul Urine Nitrite (Negative) Urine Bilirubin (Negative) mg/dL Urine Urobilinogen (Normal) mg/dl Ur Leukocyte Esterase (Negative) /ul Urine RBC (0-5) /hpf Urine WBC (0-5) /hpf Ur Squamous Epith Cells (5-10) /hpf Urine Bacteria (None Seen) /hpf Urine Mucus (<or=2+) /hpf Diagnostic Data: Diagnostic Data Chest X-Ray 01/10/19 22:17 IMPRESSION: No radiographic evidence of acute cardiopulmonary disease. at 2227 Reported and signed by: Veronica Amaya DO Electronically Signed: Veronica Amaya DO at 22:26 EDT Tel , Service support , Assessment and Plan 1) Neutropenic fever. Assessment: -In summary the patient is a 53-year-old female who is receiving Taxotere/cyclophosphamide as adjuvant therapy for breast cancer. She developed neutropenic fever following cycle one but did not have growth factor support. She is now admitted for her second episode of neutropenic fever despite the use of Neulasta cycle 2. I discussed with her that the Neulasta will not prevent neutropenia but should shorten the duration of the neutropenia. However since she had sepsis syndrome on presentation, she may have further suppression neutrophils. I recommended growth factor support. -Urine and blood cultures negative thus far. Plan: -Add Granix 480 ?g subcutaneous daily. -Monitor counts. -Continue meropenem. Medications: Prescriptions This Visit Medication Instructions Recorded Ondansetron [Zofran] 8 mg PO Q8H PRN 01/11/19 Prochlorperazine Maleate 10 mg PO Q6H PRN 01/11/19 [Compazine] Medications Added to Medication List This Visit Category Date Time Status Enoxaparin [Lovenox] Med 01/11/19 06:00 Active 40 mg SC DAILY@0600 Levothyroxine [Synthroid] Med 01/11/19 10:00 Active 50 mcg PO DAILY@0600 Losartan Potassium [Cozaar] Med 01/11/19 10:00 Active 25 mg PO DAILY Pantoprazole Sodium [Protonix] Med 01/11/19 10:00 Active 40 mg PO DAILY Tbo-Filgrastim [Granix] Med 01/11/19 14:00 Active 480 mcg SC DAILY Primary Care Provider: Cat Alanis PA-C Referring Provider:
[2019-01-11] MEDS: TBO-FILGRASTIM 480 MCG/0.8 ML ML SC (14:35)
[2019-01-11 14:38] VITALS: BP 130/72; PULSE 89; RESP 18; TEMP 36.9; O2SAT 100
--- NOTE | 2019-01-11 15:50 | CASEMGMT ---
CHRISTIN CM Readmission Note Previous Admission: 12/25/18-12/27/18 Previous Diagnosis: Neutropenic Fever DC Disposition: Home Current Admission: 01/11/19 Diagnosis: Neutropenic fever. Dr. Perez seeing pt- Continue Meropenem, Granix, monitor counts. DC PLAN: anticipate home on dc with f/u with physicians. Orquidea MAGALLANES RN ACM
--- NOTE | 2019-01-11 17:06 | PCM.HOSP.N ---
Hospitalist Note Patient was seen and examined today, she denies any chills or fevers, she denies any shortness of breath or dysuria. Patient's absolute neutrophil count today was 200, platelet count is normal, hemoglobin is 10. Patient has been afebrile today. We will continue present antibiotic coverage, repeat labs tomorrow Code Visit Inpatient E&M: 53677 Subs Hosp L2
[2019-01-11 20:37] VITALS: BP 150/73; PULSE 105; RESP 17; TEMP 37.1; O2SAT 97
[2019-01-12] MEDS: 0.9% NaCl Peripheral Flush Adult/Peds IV ×2 (01:16→06:20)
[2019-01-12 03:53] VITALS: BP 138/77; PULSE 91; RESP 16; TEMP 36.7; O2SAT 96
[2019-01-12] MEDS: Enoxaparin 40 MG/0.4 ML Syringe SC (06:20)
[2019-01-12] MEDS: Levothyroxine 50 MCG Tablet PO (06:20)
[2019-01-12 08:04] LABS: Hematocrit 35.1 % (37-47); Hemoglobin 11.6 g/dl (12.0-15.0); Mean Corpuscular Volume 84.8 fL (81-99); Mean Platelet Vol. 11.6 fl (6.2-12.0); POSITIVE COUNT NO; POSITIVE DIFFERENTIAL YES; POSITIVE MORPHOLOGY YES; Platelet Count 165 K/mm3 (150-450); RBC Distribution Width CV 13.6 % (11.6-14.6); RBC Distribution Width SD 41.4 fl (35.1-43.9); Red Blood Count 4.14 M/mm3 (4.2-5.4); White Blood Count 10.7 K/mm3 (4.4-11.0)
[2019-01-12 08:35] VITALS: BP 135/67; PULSE 99; RESP 18; TEMP 36.8; O2SAT 100
--- NOTE | 2019-01-12 08:46 | PN_ITS ---
Patient Problems: Active and Suspected Problems Neutropenic fever (Acute) Subjective: she has no complaints this morning. No further fever. No shaking chills. No nausea or vomiting. No rash. No symptoms of stomatitis. - Physical Exam General: Alert Oral: Moist Mucosa Neck: Supple Lungs: Normal air movement Cardiovascular: Regular Rhythm Abdomen: Soft, Non Tender Skin: No rashes Vital Signs Temp Pulse Resp BP Pulse Ox 98.2 F 99 18 135/67 H 100 01/12/19 08:35 01/12/19 08:35 01/12/19 08:35 01/12/19 08:35 01/12/19 08:35 Oxygen Delivery Method Room Air Weight: 90.1 kg Body Mass Index (BMI) 35.2 Intake and Output for Last 24 Hours 01/10/19 01/11/19 01/12/19 23:59 23:59 23:59 Intake Total 3290 / 3732 552 / 552 Balance 3290 / 3732 552 / 552 Laboratory Tests Past 24 Hrs 01/12/19 Unknown WBC 10.7 RBC 4.14 L Hgb 11.6 L Hct 35.1 L MCV 84.8 MCH 28.0 MCHC 33.0 RDW 13.6 RDW Differential 41.4 Plt Count 165 MPV 11.6 Immature Gran % (Auto) 0.300 Neut % (Auto) 13.2 L Lymph % (Auto) 25.2 [place] % (Auto) 52.2 H Eos % (Auto) 2.9 Baso % (Auto) 6.2 H Absolute Neuts (auto) 1.4 L Absolute Lymphs (auto) 2.69 Total Counted Pending Medical Necessity - Tobacco Use Smoking Status: Never smoker Assessment/Plan All Active Problems Family history of colon cancer in mother (Acute) Choking sensation (Acute) Atypical chest pain (Acute) Neutropenia (Acute) Breast cancer (Acute) Hypokalemia (Acute) Fever and neutropenia (Acute) Neutropenic fever (Acute) 1) Neutropenic fever. Assessment: -Afebrile throughout the last 24 hours. -Rapid neutrophil recovery after receiving growth factor support. -Blood cultures remained negative. Plan: -Okay to discontinue antibiotic and discharge home after administration of Gr anix today. -Office visit arranged with her oncologist at [facility].
[2019-01-12 09:00] LABS: Differential Indicated MANUAL DIFF
[2019-01-12 09:09] LABS: Basophil 1 % (0-1); Blast 3 % (0-0); Eosinophil 1 % (0-5); Lymphocyte 25 % (19-41); Metamyelocyte 4 % (0-1); Monocyte 26 % (0-10); Myelocyte 11 (0-0); Neutrophil-Band 7 % (0-5); Neutrophil-Segmented 15 % (47-70); Promyelocyte 7 (0-0); Total Cells Counted 100 (MANUAL DIFF)
[2019-01-12 09:10] LABS: Platelet Estimate ADEQUATE (ADEQ); Red Cell Morphology NORM C+C NORMAL (NORM C&C); Scan Smear per Review Criteria MANUAL DIFF
[2019-01-12 09:11] LABS: Absolute Neutrophil Count 2.4 X10^3/uL (2.0-7.7)
--- NOTE | 2019-01-12 10:19 | DCINST_ITS ---
- Discharge Diagnoses Current Active Problems: Current Active and Chronic Problems Neutropenic fever (Acute) You will use the following diet at home:: No restrictions Your food should be the consistency of: Regular Your liquids should be the consistency of: Regular/Thin Discharge Activity: Return to Normal Activity Allergies/Adverse Reactions: Allergies amoxicillin [From Augmentin] Adverse Reaction (Verified 01/10/19 22:07) Nausea clavulanic acid [From Augmentin] Adverse Reaction (Verified 01/10/19 22:07) Nausea Medications to take at Discharge Levothyroxine Sodium [Synthroid] 50 mcg PO DAILY 12/21/17 Losartan Potassium [Cozaar] 25 mg PO DAILY 08/15/18 Omeprazole 40 mg PO DAILY 08/15/18 Calcium (Elemental) [Os-Kailash 500] 500 mg PO DAILY@0800 12/25/18 Ergocalciferol [Vitamin D] 50,000 unit PO Q7D 12/25/18 Ondansetron [Zofran] 8 mg PO Q8H PRN 01/11/19 Prochlorperazine Maleate [Compazine] 10 mg PO Q6H PRN 01/11/19 Primary Care Physician: Cat Alanis PA-C [Primary Care Provider] - Please follow up with your Primary Care Physician in: in 2-3 weeks Test Results: Test results from this visit will be discussed in further detail at your follow- up appointment, if applicable. Please Follow Up With: your oncologist as directed
[2019-01-12] MEDS: Losartan Potassium 25 MG Tablet PO (10:41)
[2019-01-12] MEDS: Pantoprazole Sodium 40 MG Tablet PO (10:41)
[2019-01-12] MEDS: TBO-FILGRASTIM 480 MCG/0.8 ML ML SC (10:45)
--- NOTE | 2019-01-14 09:08 | DS.PCM_ITS ---
Discharge Date and Diagnosis Date of Admission: 01/11/19 Date of Discharge: 01/12/19 - Primary Discharge Diagnosis #1 neutropenic fever #2 bicytopenia secondary to chemotherapy for breast cancer #3 breast cancer #4 hypothyroidism #5 essential hypertension - Secondary Discharge Diagnosis Chronic Problems Anxiety disorder (Chronic) Hypertension (Chronic) Hypothyroidism (Chronic) Hospital Course and Treatment Operations: None Procedures: None Summary of Care Provided: The patient is a 53 year old F who was seen in the emergency room at [facility] with a chief complaint of fever, patient is under chemotherapy for breast cancer, work-up in the emergency room revealed a bicytopenia, patient's temperature was 100.3, chest x-ray showed no evidence of pneumonia. Patient was admitted to [place] [address], she was seen in consultation by oncology and placed on IV antibiotics. Patient was given Granix subcu during her hospital stay. On 01/12/2019, patient was seen and examined: On examination she appeared in good health and spirits. Vital signs as documented. Skin warm and dry and without overt rashes. Neck without JVD. Lungs clear. Heart exam notable for regular rhythm, normal sounds and absence of murmurs, rubs or gallops. Abdomen unremarkable and without evidence of organomegaly, masses, or abdominal aortic enlargement. Extremities nonedematous. Neuro: Cranial nerves II through XII are grossly intact, no focal motor deficits were noted, sensation to light touch and pinprick is intact. Psych: Patient is alert and oriented x3, she does not appear anxious or depressed On 01/12/2019, patient was seen and examined and felt to be in stable condition for discharge home, her white blood cell count on that day was 10.7. - Physical Exam Vital Signs Temp Pulse Resp BP Pulse Ox 98.2 F 99 18 135/67 H 100 01/12/19 08:35 01/12/19 08:35 01/12/19 08:35 01/12/19 08:35 01/12/19 08:35 Oxygen Delivery Method Room Air Weight: 90.1 kg Body Mass Index (BMI) 35.2 Intake and Output for Last 24 Hours 01/12/19 01/13/19 01/14/19 23:59 23:59 23:59 Intake Total 552 / 552 Balance 552 / 552 Microbiology Past 72 Hours 01/10/19 22:55 Urine Culture - Final Urine, Clean Catch Mixed Gram Positive Organisms 01/10/19 22:55 Blood Culture - Preliminary Blood Culture (Wb) - Left Hand No growth in 48 hours. 01/10/19 22:53 Blood Culture - Preliminary Blood Culture (Wb) - Anticubital Left No growth in 48 hours. Discharge Activity: Return to Normal Activity Home Medications: Medications to take at Discharge Levothyroxine Sodium [Synthroid] 50 mcg PO DAILY 12/21/17 Losartan Potassium [Cozaar] 25 mg PO DAILY 08/15/18 Omeprazole 40 mg PO DAILY 08/15/18 Calcium (Elemental) [Os-Kailash 500] 500 mg PO DAILY@0800 12/25/18 Ergocalciferol [Vitamin D] 50,000 unit PO Q7D 12/25/18 Ondansetron [Zofran] 8 mg PO Q8H PRN 01/11/19 Prochlorperazine Maleate [Compazine] 10 mg PO Q6H PRN 01/11/19 Primary Care Physician: Cat Alanis PA-C [Primary Care Provider] - Please follow up with your Primary Care Physician in: in 2-3 weeks Please Follow Up With: your oncologist as directed Disposition: Home Minutes spent on discharge:: 32 Patient Condition:: Stable Medical Necessity - Tobacco Use Smoking Status: Never smoker Meaningful Use Info Meaningful Use Diagnoses (Choose all that apply): None applicable Code Visit Inpatient E&M: 94556 Disch Hosp
--- NOTE | 2019-01-15 12:01 | CASEMGMT ---
CHRISTIN JONES DC PHONE CALL DC DATE: 01/12/19 DC Disposition: Home Diagnosis on Discharge: neutropenic fever secondary to chemo for breast cancer LACE/STRATA: 04/05 Intro role of CM to patient via home phone. Pt states she is doing well, no questions re: prescriptions, f/u or instructions. Will make own f/u appointments. No care improvement suggestions given. Pt states, I'm doing fine. CHRISTIN JONES thanked her for using [facility]. Orquidea BESTN RN ACM
[2019-01-15 14:28] LABS: Pathologist Review Reviewed
== END 2019-01-12 11:25 | disposition home or self-care (01) | DRG 810 ==
LOC: ED 22:25 → MS2 01-11 00:53
PROVIDERS: Internal Medicine Hematology & Oncology; Admitting Provider Internal Medicine; Emergency Provider Emergency Medicine; Family Provider Family Medicine; PCP Family Medicine; Visit Provider Internal Medicine
DX: D70.1 Agranulocytosis secondary to cancer chemotherapy (principal); T45.1X5A Adverse effect of antineoplastic and immunosuppressive drugs, initial encounter; R50.81 Fever presenting with conditions classified elsewhere; Z90.13 Acquired absence of bilateral breasts and nipples; C50.919 Malignant neoplasm of unspecified site of unspecified female breast; E03.9 Hypothyroidism, unspecified; I10 Essential (primary) hypertension; C50.911 Malignant neoplasm of unspecified site of right female breast; Z17.0 Estrogen receptor positive status [ER+]; F41.9 Anxiety disorder, unspecified
CPT/HCPCS: 36415; 71045; 80048; 80053; 81001; 85025; 87040; 87086; 87088; 97802; 99285; J2185; J7030; J7050; A4216; J1447

== ENCOUNTER 2019-01-14 17:26 | Emergency (ER) | payer OTHER, SELFPAY ==
[2019-01-14 17:27] VITALS: BP 160/76; PULSE 113; RESP 18; TEMP 37.1; O2SAT 97; BMI 35.3
--- NOTE | 2019-01-14 17:49 | ED.DCSUM_ITS ---
- ER Visit Summary Date of Service: 01/14/19 Chief Complaint: Rash and itching History of Present Illness: The patient is a 53 F. Breast CA with bilateral mastectomies and currently had done chemotherapy but because it is causing her neutropenia she has had recent fevers and stopped the chemotherapy. Baseline was just hospitalized was on IV antibiotics. Was discharged is been doing well since she was discharged but then today developed a rash on her forehead neck and arms that itches. She is never had allergic reaction to anything before. She denies any swelling of her lips or tongue. No wheezing or shortness of breath. Otherwise she feels well. Physical Examination: Middle-aged female no acute distress. Vital signs stable afebrile. HEENT exam is alopecia from the chemotherapy. There is a nondescript rash consistent with allergic reaction along her forehead and hairline also on her neck and right arm. There is no petechiae or purpura no bruising. No signs of infection. Neck nontender no lymphadenopathy. Lungs clear to auscultation bilaterally. Heart regular rate and rhythm no murmur. Abdomen soft nontender. She is moving all 4 extremities. No edema. No bruising. Back nontender. No rash. No bruising. Neurologic exam normal. Test Results: None Emergency Department Course and Treatment: Rash consistent with allergic reaction possibly to the antibiotic she received in the hospital. Treated with a dose of prednisone here. Treatment Plan: Prednisone daily for the next 5 days. If rash resolves she can stop the oral steroid. Benadryl as needed. Follow-up as needed. Disposition: Discharge Impression: Acute rash with itching secondary to allergic reaction History of breast CA This note was generated with [employer] dictation software. It may contain incorrect words, spelling, and punctuation that were not noted in review of the chart prior to signing ED Disposition - Plan for ED Patient: Referrals: Cat Alanis PA-C [Primary Care Provider] -
--- NOTE | 2019-01-14 17:51 | ED.DEP ---
ED Disposition - Plan for ED Patient: Disposition: Home or Assisted Living Instructions: ALLERGIC REACTION, Other (General) Prescriptions: Prednisone [Deltasone] 40 mg PO DAILY 5 Days #5 tab Prescription Printed Referrals: Cat Alanis PA-C [Primary Care Provider] - As Needed Additional Instructions: Benadryl daily for itching. Prednisone 40 mg a day no rash gone. Follow-up if not improving return if a lot worse.
[2019-01-14 18:15] VITALS: BP 162/82; PULSE 106; RESP 16; O2SAT 95
[2019-01-14] MEDS: predniSONE 20 MG Tablet 60 MG PO (18:16)
== END 2019-01-14 18:26 | disposition home or self-care (01) ==
LOC: ED 18:25
PROVIDERS: Emergency Provider Emergency Medicine; Family Provider Family Medicine; PCP Family Medicine
DX: R21 Rash and other nonspecific skin eruption (principal); T78.40XA Allergy, unspecified, initial encounter; X58.XXXA Exposure to other specified factors, initial encounter; I10 Essential (primary) hypertension; Z86.2 Personal history of diseases of the blood and blood-forming organs and certain disorders involving the immune mechanism; Z85.3 Personal history of malignant neoplasm of breast; Z92.21 Personal history of antineoplastic chemotherapy; Z90.13 Acquired absence of bilateral breasts and nipples; Z79.899 Other long term (current) drug therapy
CPT/HCPCS: 99283

== ENCOUNTER 2022-11-16 08:52 | Day surgery (SDC) | payer OTHER, SELFPAY ==
[2022-11-16 09:21] VITALS: BP 154/77; PULSE 88; RESP 16; TEMP 36.2; O2SAT 96; BMI 35.3
[2022-11-16] MEDS: Lactated Ringers 1,000 ML 15 ML IV (09:32)
--- NOTE | 2022-11-16 09:33 | PCM.HP.BLA ---
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 Is patient in pain?: No Allergies amoxicillin [From Augmentin] Adverse Reaction (Verified 11/08/22 07:53) Nauseaclavulanic acid [From Augmentin] Adverse Reaction (Verified 11/08/22 07:53) Nausea Medications levothyroxine 50 mcg tablet (Synthroid) 50 mcg PO DAILY Hypothyroidism 12/21/17 [History Confirmed 11/08/22] losartan 25 mg tablet (Cozaar) 25 mg PO DAILY B/P 08/15/18 [History Confirmed 11/08/22] omeprazole 40 mg capsule,delayed release 40 mg PO DAILY Acid reflux 08/15/18 [History Confirmed 11/08/22] calcium carbonate 500 mg calcium (1,250 mg) tablet 500 mg PO DAILY@0800 Bone health 12/25/18 [History Confirmed 11/08/22] ergocalciferol (vitamin D2) 1,250 mcg (50,000 unit) capsule 50,000 unit PO Q7D Check with primary doctor 12/25/18 [History Confirmed 11/08/22] ondansetron HCl 8 mg tablet 8 mg PO Q8H PRN Nausea 01/11/19 [History Confirmed 11/08/22] prochlorperazine maleate 10 mg tablet 10 mg PO Q6H PRN nausea 01/11/19 [History Confirmed 11/08/22] PFSH Medical History?(Updated 11/08/22 @ 07:[address] Panchito Peralta MD) Atypical chest pain Surgical History?(Updated 11/08/22 @ 07:46 by Judi Rangel) S/P mastectomy, bilateral Family History?(Updated 11/08/22 @ 07:49 by Judi Rangel) Father Heart disease HypertensionSister DiabetesMother Colon cancer Social History Smoking Status:? Never smoker alcohol intake:? current HPI HPI HPI: 57-year-old female.? Her most recent [facility] hospitalization was December 25 where she was hospitalized for neutropenic fever.? She had a history of breast cancer without metastasis stage I and had had bilateral mastectomies.? She is referred now by Cat Galicia PA-C for surgical consultation regarding a screening colonoscopy.? She has had a family history of colon cancer in her mother.? I assisted her on December 30, 2017 because of a choking sensation.? I did an esophagogastroduodenoscopy and colonoscopy.? The upper endoscopy showed a hiatal hernia some suspected mild gastroesophageal reflux disease and some chronic gastritis.? The colonoscopy demonstrated sigmoid diverticulosis.? It was felt that her choking sensation likely was secondary to reflux disease.? She was initiated on omeprazole therapy 40 mg daily.? Follow-up colonoscopy at 5 years recommended.? 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 H. pylori was negative. 2019 the patient had bilateral mastectomies for unilateral breast cancer.? This was performed by Dr. Kate Mcelroy.? The patient then had chemotherapy but only tolerated 2 doses because of severe neutropenia.? By her report she can continues to remain disease-free. The patient continues to have gastroesophageal reflux disease symptoms.? She requires daily pantoprazole and she uses famotidine for breakthrough symptoms.? She has been on pantoprazole for multiple years. ROS General General: Yes breast cancer; No weight change, appetite, fatigue, colon cancer or weakness HEENT HEENT: No difficulty swallowing, eye injury, eye surgery, swollen glands or hoarseness Endo Endocrine: Yes thyroid disease; No diabetes mellitus, thyroid cancer, Hair loss, heat intolerance or cold intolerance Skin Skin: No rash or changing moles Breast Breast: No left breast lump, right breast lump, nipple discharge, breast pain, abnormal mammogram, abnormal US or breast enlargement Musc Musculoskeletal: Yes back problems; No arthritis, rheumatoid arthritis, gout or joint pain Cardio Cardiovascular: Yes high blood pressure; No murmur, pacemaker, heart disease, atrial fibrillation, heart attack, heart stent, palpitations, shortness of breat with exertion or chest pain Psych Psychiatric: No depression, anxiety or hearing voices Resp Respiratory: No shortness of breath, No sleep apnea, No cough, No COPD, No asthma, No emphysema and No wheezing Gastro Gastrointestinal: No abdominal pain, No nausea or vomiting, No diarrhea, No constipation, No blood in stool, Yes acid reflux, No hemorrhoids, No ulcers, No gallbladder problem and No black,tarry stools Jermaine Hematologic: No blood thinners, No blood disorders, No bleeding, No anemia and No blood clots Neuro Neurologic: No system reviewed and no additional complaints, except as documented, No as per HPI, No abnormal gait, No abnormal hearing, No abnormal movements, No abnormal speech, No behavioral changes, No burning sensations, No confusion, No convulsions, No disequilibrium, No dizziness, No localized weakness, No frequent falls, No headache(s), No lack of coordination, No loss of vision, No memory loss, No numbness, No other visual disturbances, No radicular pain, No restless legs, No sensory deficit, No syncope, No tingling, No tremor(s), No weakness and No other Exam Const General: cooperative, healthy appearing, comfortable and no acute distress Nutritional Appearance: overweight HENMT Head: normal to inspection Eyes General: appearance normal, both eyes and all related structures Neck Neck: normal visual inspection Resp Effort & Inspection: normal respiratory effort Auscultation: clear to auscultation bilaterally Cardio Rate: regular rate Rhythm: regular rhythm GI Palpation: soft and no hepatosplenomegaly Auscultation: normal bowel sounds Skin General: no rashes or lesions noted Neuro General: patient alert, patient awake and patient oriented x3 Extrem General: no calf tenderness Psych Appearance: grossly normal Assessment and Plan Assessment and Plan (1) Family history of colon cancer in mother: ?Status:?Acute ?Plan: I did discuss with the patient a esophagogastroduodenoscopy with careful inspection and anticipated biopsy.? We discussed her routine proton pump inhibitor use.? I do recommend that she attempt to use the famotidine 20 mg orally twice daily as her mainstay and use the pantoprazole for breakthrough.? She will try to see if this works.? We educated her about head of the bed elevation as well.? I discussed with her the potential use of reflux Gourmet as well. Family history of colon cancer and personal history of breast cancer I recommend to her a colonoscopy with possible biopsy or polypectomy as indicated.? She has had an opportunity to ask and have questions answered.? She states that she anticipates changing jobs within the very near future and would like to have these procedures performed prior to that job change.? We will see if we can accommodate. Copy: TORSTEN Melissa M.D., F.A.C.S. (2) GERD (gastroesophageal reflux disease): ?Status:?Acute (3) Choking sensation: ?Status:?Acute (4) Anxiety disorder: ?Status:?Chronic ?Qualifiers: ?Anxiety disorder type:?unspecified anxiety disorder? Qualified Code(s):?F41.9 - Anxiety disorder, unspecified (5) Neutropenia: ?Status:?Acute ?Qualifiers: ?Neutropenia type:?secondary to cancer chemotherapy? Qualified Code(s):?D70.1 - Agranulocytosis secondary to cancer chemotherapy; T45.1X5A - Adverse effect of antineoplastic and immunosuppressive drugs, initial encounter (6) Breast cancer: ?Status:?Acute ?Qualifiers: ?Breast location:?unspecified site of breast??Estrogen receptor status:?positive??Laterality:?right??Patient sex:?female? Qualified Code(s):?C50.911 - Malignant neoplasm of unspecified site of right female breast; Z17.0 - Estrogen receptor positive status [ER+] (7) Hypokalemia: ?Status:?Acute (8) Hypertension: ?Status:?Chronic ?Qualifiers: ?Hypertension type:?essential hypertension? Qualified Code(s):?I10 - Essential (primary) hypertension (9) Hypothyroidism: ?Status:?Chronic ?Qualifiers: ?Hypothyroidism type:?unspecified? Qualified Code(s):?E03.9 - Hypothyroidism, unspecified (10) Fever and neutropenia: ?Status:?Acute (11) Neutropenic fever: ?Status:?Acute Coding Level of Care Code Off vis,est,level 3 Diagnoses Family history of colon cancer in mother? Z80.0 GERD (gastroesophageal reflux disease)? K21.9 Choking sensation? R09.89 Anxiety disorder? F41.9 ? ? ? Anxiety disorder type: unspecified anxiety disorder Neutropenia? D70.1; T45.1X5A ? ? ? Neutropenia type: secondary to cancer chemotherapy Breast cancer? C50.911; Z17.0 ? ? ? Breast location: unspecified site of breast ? ? ? Estrogen receptor status: positive ? ? ? Laterality: right ? ? ? Patient sex: female Hypokalemia? E87.6 Hypertension? I10 ? ? ? Hypertension type: essential hypertension Hypothyroidism? E03.9 ? ? ? Hypothyroidism type: unspecified Fever and neutropenia? D70.9; R50.81 Neutropenic fever? D70.9; R50.81 11/08/22 0756 <Electronically signed by Panchito Peralta MD> I have examined the patient and the H&P has been reviewed. There are no clinical changes since date of exam. Panchito Peralta M.D., F.A.C.S.
--- NOTE | 2022-11-16 10:00 | COLBX_PTH ---
PATIENT: KENNETH PIERRE LOC: EN U#:[id number] AGE/SX: 57/F ROOM: RE11/16/[address]: Dr. Panchito Peralta MD : 1965 BED: DIS: 11/16/2022 SPEC #: [id number] RECD: 11/16/22 11:39 STATUS: ELIJAH RANDAL #: [id number] DEANNA: 11/16/22 10:[address]: Panchito Peralta DEPT: SURGICAL PATHOLOGY RECD BY: Masha Mena ENTERED: 11/16/22 12:54 SP TYPE: COLON BX OTHR DR: Cat Alanis PA-C Tissues: A - COLON BIOPSY B - COLON BIOPSY C - Esophagus, NOS D - Cecum, NOS Procedures: Special Stain Group II Surgery Specimen Level IV Alcian Blue/PAS (control) HEADER OPERATION: Colonoscopy, EGD [place] [place]OP DIAGNOSIS: Family history of colon cancer in mother TISSUE SUBMITTED: A ? Antrum for H. pylori and path, B ? Greater curvature polyp biopsy, C ? Distal esophagus biopsy, D ? Cecal polyp MICROSCOPIC DIAGNOSIS A. Gastric antrum, biopsy: Chronic gastritis. See comment. B. Greater curvature stomach polyp, biopsy: Hyperplastic polyp. C. Distal esophagus, biopsy: Gastroesophageal junctional mucosa with mild chronic inflammation. No evidence of goblet cell metaplasia. See comment. D. Cecal polyp, biopsy: Fragments of tubular adenoma. AM:asutyn 11/17/2022 COMMENT A. The results of immunohistochemistry for Helicobacter pylori will be reported separately ([id number]). B. Alcian blue/PAS stain with matched control supports the above diagnosis. MICROSCOPIC DESCRIPTION Slides are reviewed. GROSS DESCRIPTION A - Received in fixative is one container labeled with the patient's name and designated gastric antrum. The specimen consists of one irregular fragment of light borjas soft tissue that measures 0.5 x 0.5 x 0.1 cm. The specimen is totally submitted in one cassette. B - Received in fixative is one container labeled with the patient's name and designated greater curvature polyp. The specimen consists of one irregular fragment of light borjas soft tissue that measures 0.5 x 0.3 x 0.1 cm. The specimen is totally submitted in one cassette. C - Received in fixative is one container labeled with the patient's name and designated distal esophagus. The specimen consists of multiple irregular fragments of light borjas soft tissue that in aggregate measure 1.5 x 0.5 x 0.1 cm. The specimen is totally submitted in one cassette. D - Received in fixative is one container labeled with the patient's name and designated cecal polyp. The specimen consists of multiple irregular fragments of light borjas soft tissue that in aggregate measure 2.0 x 0.7 x 0.1 cm. The specimen is totally submitted in one cassette. / AM:austyn 11/16/2022 TC:3 CPT: 69022 x4, 84830
--- NOTE | 2022-11-16 10:00 | IMM_PTH ---
PATIENT: KENNETH PIERRE LOC: EN U#:[id number] AGE/SX: 57/F ROOM: RE11/16/[address]: Dr. Panchito Peralta MD : 1965 BED: DIS: 11/16/2022 SPEC #: [id number] RECD: 11/16/22 13:02 STATUS: ELIJAH REGenaro #: [id number] DEANNA: 11/16/22 10:[address]: Panchito Peralta DEPT: IMMUNOHISTOCHEMISTRY RECD BY: yV Bautista ENTERED: 11/16/22 13:03 SP TYPE: IMMUNO OTHR DR: Cat Alanis PA-C Tissues: A - Stomach, NOS Procedures: H Pylori (initial) PHYSICIAN & INSTITUTION [place] [address] SPECIMEN INFORMATION: Tissue Source: A - Antrum Clinical Info: Screening Specimen Number: [id number] CPT code: 71187 METHODOLOGY: Deparaffinized sections of prefer/formalin-fixed tissue or PAP/DQ stained slides are incubated with monoclonal/polyclonal antibodies/oligonucleotide probes. Localization is made via biotin free immunoperoxidase method. Appropriate controls are performed and reacted as expected. Results on target cell population are indicated in the following table: RESULTS: ANTIBODY / CLONE RESULT Block A H Pylori (polyclonal) negative These tests were developed and their performance characteristics determined by [facility]. They may not have been cleared or approved by the U.S. Food and Drug Administration. The FDA has determined that such clearance or approval is not necessary. The above immunohistochemical/dualISH markers are ordered and reviewed by the Pathologist. INTERPRETATION: A. Antrum, biopsy: Negative for Helicobacter pylori organisms. AM:austyn 11/18/2022
[2022-11-16] MEDS: 0.9% Saline Lock 10 ML Syringe IV (10:33)
[2022-11-16 10:45] VITALS: BP 107/70; BP 154/77; PULSE 77; RESP 16; TEMP 36.5; O2SAT 94
--- NOTE | 2022-11-16 10:45 | OP.EGD_ITS ---
Patient Name: Donna Ponce Procedure Date: 11/16/2022 10:12 AM Date of : 1965 Age: 57 Procedure: Upper GI endoscopy Indications: Suspected esophageal reflux Providers: Panchito Peralta MD Referring MD: Panchito Peralta MD Medicines: See the Anesthesia note for documentation of the administered medications Complications: No immediate complications. Procedure: Pre-Anesthesia Assessment: - Prior to the procedure, a History and Physical was performed, and patient medications and allergies were reviewed. The patient's tolerance of previous anesthesia was also reviewed. The risks and benefits of the procedure and the sedation options and risks were discussed with the patient. All questions were answered, and informed consent was obtained. Prior Anticoagulants: The patient has taken no previous anticoagulant or antiplatelet agents. ASA Grade Assessment: II - A patient with mild systemic disease. After reviewing the risks and benefits, the patient was deemed in satisfactory condition to undergo the procedure. After obtaining informed consent, the endoscope was passed under direct vision. Throughout the procedure, the patient's blood pressure, pulse, and oxygen saturations were monitored continuously. The pediatric colonoscope was introduced through the mouth, and advanced to the second part of duodenum. The upper GI endoscopy was accomplished without difficulty. The patient tolerated the procedure well. Scope In: 10:20:42 AM Scope Out: 10:26:48 AM Total Procedure Duration Time 0 hours 6 minutes 6 seconds Findings: The Z-line was variable and was found 36 cm from the incisors. Biopsies were taken with a cold forceps for histology. Esophagitis with no bleeding was found 36 cm from the incisors. A small hiatal hernia was present. Diffuse mildly erythematous mucosa without bleeding was found in the gastric antrum. Biopsies were taken with a cold forceps for histology. A few sessile polyps with no bleeding and no stigmata of recent bleeding were found on the greater curvature of the stomach. The polyp was removed with a cold biopsy forceps. Resection and retrieval were complete. The examined duodenum was normal. Impression: - Z-line variable, 36 cm from the incisors. Biopsied. - Reflux esophagitis. - Small hiatal hernia. - Erythematous mucosa in the antrum. Biopsied. - A few gastric polyps. Resected and retrieved. - Normal examined duodenum. Recommendation: - Telephone my office for pathology results in 1 week. Awaiting pathology. No changes in medications at this moment. - Continue present medications. Procedure Code(s): --- Professional --- 37900, Esophagogastroduodenoscopy, flexible, transoral; with biopsy, single or multiple Diagnosis Code(s): --- Professional --- K22.8, Other specified diseases of esophagus K21.0, Gastro-esophageal reflux disease with esophagitis K44.9, Diaphragmatic hernia without obstruction or gangrene K31.89, Other diseases of stomach and duodenum K31.7, Polyp of stomach and duodenum CPT copyright 2017 [employer]. All rights reserved. The codes documented in this report are preliminary and upon torch straightener and heater review may be revised to meet current compliance requirements. Panchito Peralta MD 11/16/2022 10:44:48 AM This report has been signed electronically. Number of Addenda: 0 Note Initiated On: 11/16/2022 10:12 AM
--- NOTE | 2022-11-16 10:45 | OP.CCLET_ITS ---
11/16/2022 [facility] Re : Upper GI endoscopy procedure for Donna Alanis This procedure was performed on Wednesday, November 16, 2022. My impressions and recommendations are as follows: Impressions : - Z-line variable, 36 cm from the incisors. Biopsied. - Reflux esophagitis. - Small hiatal hernia. - Erythematous mucosa in the antrum. Biopsied. - A few gastric polyps. Resected and retrieved. - Normal examined duodenum. Recommendations : - Telephone my office for pathology results in 1 week. Awaiting pathology. No changes in medications at this moment. - Continue present medications. My findings are described in the full procedure note, which is enclosed. If I can be of further assistance, please feel free to contact me at Doctor phone number(s): Work: . Sincerely, Panchito Peralta MD 11/16/2022 10:44:48 AM This report has been signed electronically.
--- NOTE | 2022-11-16 10:49 | OP.COLON_ITS ---
Patient Name: Donna Ponce Procedure Date: 11/16/2022 10:27 AM Date of : 1965 Age: 57 Procedure: Colonoscopy Indications: Screening in patient at increased risk: Family history of 1st-degree relative with colorectal cancer Providers: Panchito Peralta MD Referring MD: Panchito Peralta MD Medicines: See the Anesthesia note for documentation of the administered medications Patient Profile: Last Colonoscopy: December 2017. Complications: No immediate complications. Procedure: Pre-Anesthesia Assessment: - Prior to the procedure, a History and Physical was performed, and patient medications and allergies were reviewed. The patient's tolerance of previous anesthesia was also reviewed. The risks and benefits of the procedure and the sedation options and risks were discussed with the patient. All questions were answered, and informed consent was obtained. Prior Anticoagulants: The patient has taken no previous anticoagulant or antiplatelet agents. ASA Grade Assessment: II - A patient with mild systemic disease. After reviewing the risks and benefits, the patient was deemed in satisfactory condition to undergo the procedure. After I obtained informed consent, the scope was passed under direct vision. Throughout the procedure, the patient's blood pressure, pulse, and oxygen saturations were monitored continuously. The pediatric colonoscope was introduced through the anus and advanced to the cecum, identified by appendiceal orifice and ileocecal valve. The colonoscopy was performed without difficulty. The patient tolerated the procedure well. The quality of the bowel preparation was good. The ileocecal valve and the appendiceal orifice were photographed. Scope In: 10:28:17 AM Scope Withdrawal Time 0 hours 7 minutes 39 seconds Scope Out: 10:39:58 AM Total Procedure Duration Time 0 hours 11 minutes 41 seconds Findings: The perianal and digital rectal examinations were normal. A 7 mm polyp was found in the cecum. The polyp was sessile. The polyp was removed with a hot snare. The polyp was removed with a saline injection-lift technique using a hot snare. Resection and retrieval were complete. Hemorrhoids were found on perianal exam. The exam was otherwise without abnormality. Impression: - One 7 mm polyp in the cecum, removed with a hot snare and removed using injection-lift and a hot snare. Resected and retrieved. - Hemorrhoids found on perianal exam. - The examination was otherwise normal. Recommendation: - Discharge patient to home. - Resume previous diet. - Continue present medications. - Repeat colonoscopy in 5 years for surveillance based on pathology results. - Telephone my office for pathology results in 1 week. Procedure Code(s): --- Professional --- 44328, Colonoscopy, flexible; with removal of tumor(s), polyp(s), or other lesion(s) by snare technique 96945, Colonoscopy, flexible; with directed submucosal injection(s), any substance Diagnosis Code(s): --- Professional --- Z80.0, Family history of malignant neoplasm of digestive organs D12.0, Benign neoplasm of cecum K64.9, Unspecified hemorrhoids CPT copyright 2017 [employer]. All rights reserved. The codes documented in this report are preliminary and upon attendant arcade review may be revised to meet current compliance requirements. Panchito Peralat MD 11/16/2022 10:49:18 AM This report has been signed electronically. Number of Addenda: 0 Note Initiated On: 11/16/2022 10:27 AM
--- NOTE | 2022-11-16 10:49 | OP.CCLET_ITS ---
11/16/2022 [facility] Re : Colonoscopy procedure for Donna Alanis This procedure was performed on Wednesday, November 16, 2022. My impressions and recommendations are as follows: Impressions : - One 7 mm polyp in the cecum, removed with a hot snare and removed using injection-lift and a hot snare. Resected and retrieved. - Hemorrhoids found on perianal exam. - The examination was otherwise normal. Recommendations : - Discharge patient to home. - Resume previous diet. - Continue present medications. - Repeat colonoscopy in 5 years for surveillance based on pathology results. - Telephone my office for pathology results in 1 week. My findings are described in the full procedure note, which is enclosed. If I can be of further assistance, please feel free to contact me at Doctor phone number(s): Work: . Sincerely, Panchito Peralta MD 11/16/2022 10:49:18 AM This report has been signed electronically.
[2022-11-16 10:50] VITALS: BP 105/71; BP 154/77; PULSE 83; RESP 16; O2SAT 94
[2022-11-16 10:55] VITALS: BP 119/78; BP 154/77; PULSE 73; RESP 16; O2SAT 95
[2022-11-16 10:59] VITALS: BP 122/71; BP 154/77; PULSE 75; RESP 16; TEMP 36.9; O2SAT 95
[2022-11-16 11:11] VITALS: BP 154/77
== END 2022-11-16 11:21 | disposition home or self-care (01) ==
LOC: EN 08:58 → AC 09:00
PROVIDERS: PCP Family Medicine; Referring Provider Surgery; Visit Provider Surgery
PROC: 0DJD8ZZ Inspection of Lower Intestinal Tract, Via Natural or Artificial Opening Endoscopic (ICD-10-PCS; CPT 45378; principal; 2022-11-16 09:55)
DX: Z12.11 Encounter for screening for malignant neoplasm of colon (principal); D12.0 Benign neoplasm of cecum; K29.50 Unspecified chronic gastritis without bleeding; K44.9 Diaphragmatic hernia without obstruction or gangrene; K64.9 Unspecified hemorrhoids; K31.89 Other diseases of stomach and duodenum; K21.00 Gastro-esophageal reflux disease with esophagitis, without bleeding; K31.7 Polyp of stomach and duodenum; I10 Essential (primary) hypertension; Z79.899 Other long term (current) drug therapy; Z80.0 Family history of malignant neoplasm of digestive organs; Z92.21 Personal history of antineoplastic chemotherapy
CPT/HCPCS: 45385; 45381; 43239; 88305; 88313; 88342; J7120; A4216; J2405